=== PATIENT | female | born 2000 | race Caucasian/White ===

== ENCOUNTER 2021-06-22 14:45 | Emergency (ER) | payer OTHER, SELFPAY ==
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
[2021-06-22 15:48] VITALS: BP 127/86; PULSE 85; RESP 16; TEMP 36.7; O2SAT 98; BMI 31.7
[2021-06-22] MEDS: Ibuprofen 600 MG TABLET PO (15:55)
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
[2021-06-22 17:19] VITALS: BP 129/72; PULSE 83; RESP 18; TEMP 36.9; O2SAT 97
== END 2021-06-22 17:29 | disposition home or self-care (01) ==
PROVIDERS: Emergency Provider Emergency Medicine Emergency Medical Services; PCP Nurse Practitioner Pediatrics
DX: S06.0X0A Concussion without loss of consciousness, initial encounter (principal); S83.91XA Sprain of unspecified site of right knee, initial encounter; G44.309 Post-traumatic headache, unspecified, not intractable; V43.62XA Car passenger injured in collision with other type car in traffic accident, initial encounter; Y93.9 Activity, unspecified; Y92.410 Unspecified street and highway as the place of occurrence of the external cause; Y99.9 Unspecified external cause status
CPT/HCPCS: 73560; 99284

== ENCOUNTER 2021-07-06 11:50 | Emergency (ER) | payer OTHER, SELFPAY ==
--- NOTE | ~2021-07-06 | CT_ITS ---
EXAMINATION: CT ABDOMEN AND PELVIS WITH CONTRAST CLINICAL INFORMATION: Diffuse abdominal pain, dysuria, lower back pain COMPARISON: None TECHNIQUE: Multidetector volumetric images were obtained from the superior aspect of the liver through the pubic symphysis following administration 85 mL of Omnipaque 350 intravenous contrast. Sagittal and coronal reformatted images were obtained on the technologist's workstation. Oral contrast: No This CT examination was performed using dose optimization techniques as appropriate, variously including the following: *Automated exposure control *Adjustment of mA and/or kV according to patient size (this includes techniques or standardized protocols for targeted exams where dose is matched to indication/reason for exam; i.e. extremities or head) *Use of iterative reconstruction technique DLP: 674 mGy-cm FINDINGS: LUNG BASES: The visualized lung bases are unremarkable. LIVER, GALLBLADDER, AND BILIARY TREE: The liver is normal in size, shape, and attenuation. No focal hepatic lesion or biliary ductal dilatation is present. The gallbladder is unremarkable with no evidence of radiopaque gallstones, gallbladder wall thickening, or obvious pericholecystic inflammatory changes. PANCREAS: Unremarkable. SPLEEN: Unremarkable. ADRENAL GLANDS: Unremarkable. KIDNEYS AND URETERS: The kidneys are normal in size, shape, and attenuation. No hydronephrosis, hydroureter, or calculi seen. No perinephric stranding. BLADDER: Possible mild bladder wall thickening versus underdistention. GASTROINTESTINAL TRACT: The stomach and small bowel are not dilated. No evidence for bowel obstruction. Normal appendix. No pericolonic inflammatory change. ABDOMINAL WALL: No significant hernia is appreciated. LYMPH NODES: Normal. VASCULAR: Unremarkable. PELVIC VISCERA: There is a small fibroid along the fundus of the uterus that measures 1 cm. No adnexal mass. OSSEOUS STRUCTURES: No acute or suspicious osseous abnormality. CT/CT abdomen pelvis w con IMPRESSION: Possible mild bladder wall thickening versus underdistention. Consider correlation with urinalysis if there is concern for cystitis. Normal appendix. No evidence for bowel obstruction. No pericolonic inflammatory change.
[2021-07-06 11:52] VITALS: BP 135/90; PULSE 118; RESP 19; TEMP 37.1; O2SAT 98; BMI 32.8
--- NOTE | 2021-07-06 12:22 | ED_ITS ---
HPI - Female Genitourinary General Chief complaint: Urogenital-Female Stated complaint: uti Time Seen by Provider: 07/06/21 12:06 Source: patient and family (Significant other at bedside) Mode of arrival: ambulatory Limitations: no limitations History of Present Illness HPI Narrative: 20-year-old female with no significant past medical or surgical history presenting to the ED with her significant other at bedside with complaints of chills, sore throat, nasal congestion/rhinorrhea, suprapubic abdominal pain that is now radiating to her left upper quadrant/left flank and lower back bilaterally with associated dysuria/urinary urgency/frequency for the past 3-4 days. Reports that she has had UTIs in the past although usually does not need antibiotics usually takes cranberry juice and the UTI as go away on their own. Although she has been drink cranberry juice and no symptomatic relief. She reports that she is not vaccinated to the flu or to COVID. She denies any sick contacts or recent travel. She denies any measured fevers, dizziness, headaches, neck pain/stiffness, trouble swallowing or breathing, chest pain or shortness of breath, dyspnea on exertion, orthopnea, black or bloody emesis, rashes, recent falls or trauma, diarrhea constipation, hematuria, urinary or bowel incontinence or retention, IV drug use, paresthesias or any other symptoms complaints or concerns at this time. MD elicited complaint: dysuria and UTI Onset (ago): day(s) (3) Location of symptoms: suprapubic Severity: moderate Female Urogenital Radiation: Suprapubic, LLQ, LRQ, L Flank and R Flank Severity scale (1-10): 9 Quality of pain: sharp and aching Consistency: constant Vaginal discharge: none Vaginal bleeding: none Urinary symptoms: Dysuria, Urgency and Frequency Exacerbating factors: urination and palpation Relieving factors: none Associated symptoms: abdominal pain, chills, nausea, vomiting and back pain Treatment prior to arrival: other (Cranberry juice) Sexual activity: Yes Patient : No Date of Last Menstrual Period: 06/21/21 Related Data Previous Rx's Medication Instructions Recorded ibuprofen 600 mg tablet 600 mg PO Q6H PRN #20 tab 06/22/21 cephalexin 500 mg capsule 500 mg PO Q6H 7 Days #28 cap 07/06/21 ondansetron 4 mg disintegrating 4 mg PO Q6-8H PRN #14 tab 07/06/21 tablet Allergies Allergy/AdvReac Type Severity Reaction Status Date / Time No Known Allergies Allergy Verified 06/22/21 15:48 Review of Systems Review of Systems: Constitutional : No Weight loss, No Fever, + Chills, No Night Sweats, No Fatigue, No Malaise ENT/Mouth : No Hearing loss, No Ear Pain, + Nasal Congestion, No Sinus Pain, No Hoarseness, + sore throat, + Rhinorrhea, No Swallowing Difficulty Eyes: No Eye Pain, No Swelling, No Redness, No Foreign Body, No Discharge, No Vision Changes Cardiovascular : No Chest Pain, No SOB, No Dyspnea on Exertion, No Orthopnea, No Edema, No Palpitations Respiratory : No Cough, No Sputum, No Wheezing, No Smoke Exposure, No Dyspnea Gastrointestinal : + Nausea, + Vomiting, No Diarrhea, No Constipation, + abdominal Pain, No Hematochezia, No Melena Genitourinary : no irregular bleeding, + Dysuria, + Urinary Frequency, No Hematuria, No Urinary Incontinence, + Urgency, + Flank Pain, No Urinary Flow Changes, No Hesitancy Musculoskeletal : No joint pain, No Myalgias, No Joint Swelling Skin : No Skin Lesions, No rash Neuro : No Weakness, No Numbness, No Paresthesias, No Loss of Consciousness, No Dizziness, No Headache Psych : No Anxiety/Panic, No Depression, No SI/HI/AH/VH, No Social Issues, Heme/Lymph: No Bruising, No Bleeding,No Lymphadenopathy Endocrine : No Polyuria, No Polydipsia, No Temperature Intolerance Yes all othe r systems are reviewed and are negative PMFSH Past Medical History Attestation statement: The following information was validated with the patient. Medical History No known health problems Date of Last Menstrual Period: 06/21/21 Social History Social History Patient Tobacco Use Status: Never used Tobacco Use of substances other than those prescribed or required for medical reasons: Yes Substance Use Type: Marijuana Substance Use Frequency: Daily Advance Directives: No Advance Directives Information Provided: No Patient : No Physical Exam Vital Signs: Vital Signs: Last Vital Signs Temp 98.8 F 07/06/21 11:52 Pulse 94 07/06/21 12:44 Resp 18 07/06/21 12:44 BP 142/89 H 07/06/21 12:44 Pulse Ox 98 07/06/21 12:44 BMI result Body Mass Index 32.8 vital signs have been reviewed Blood pressure 135/90 Heart rate 118 Respiration normal. Oxygen saturation normal. Temperature 98.8 normal Appearance: Alert. Oriented X3. No acute distress. Head: Normal external exam. Normocephalic. Atraumatic. Eyes: PERRLA. EOMI. Conjunctiva and sclera normal. Eyelids normal. ENT: EAC normal. TM's Normal. Posterior pharynx mildly erythematous although no exudate is noted. Uvula midline. Moist mucous membranes. No trismus noted. No drooling noted. No muffled voice noted. No stridor noted. Patient tolerating secretions well. Neck: Normal inspection. Neck supple. FROM. No adenopathy. Thyroid Normal. No meningeal signs. No neck mass noted. CVS: Normal heart rate and rhythm. Heart sound normal. Pulses normal throughout. No murmurs/rales/gallops. Respiratory: No respiratory distress. Painless inspiration. Breath sounds normal. No wheezes/rales/rhonchi noted. Chest nontender. No accessory muscle usage noted or decreased air movement noted. Normal chest excursions noted. Abdomen: Soft and moderate tenderness diffusely with guarding. Bowel sounds normal in all 4 quadrants. No distention noted. No organomegaly noted. No visible injury noted. Negative Rovsing sign. Negative psoas sign. Negative obturator sign. Negative Gonzalez sign. Back: No CVA tenderness. Full range of motion noted. No rashes/lesion/induration/fluctuance or signs of infection noted. Skin: Skin warm and dry. Normal skin color. Normal skin turgor. No rashes/lesions/lacerations noted. Extremities: Extremities exhibit normal range of motion. Extremities nontender. Neuro: Oriented X 3. No motor deficit. No sensory deficit. Reflexes normal. Normal steady gait. No focal neuro deficits noted. Vascular: + radial pulses/+ 2 distal pedal pulses/+2 dorsalis pedis b/l. Normal cap refill. No cyanosis noted to upper extremity nails and lower extremity toes nails. Course Course Course Narrative: 12:10pm - 20-year-old female with no significant past medical or surgical history p resenting to the ED with her significant other at bedside with complaints of chills, sore throat, nasal congestion/rhinorrhea, suprapubic abdominal pain that is now radiating to her left upper quadrant/left flank and lower back bilaterally with associated dysuria/urinary urgency/frequency for the past 3-4 days. Reports that she has had UTIs in the past although usually does not need antibiotics usually takes cranberry juice and the UTI as go away on their own. Although she has been drink cranberry juice and no symptomatic relief. Plan: Labs, UA, gonorrhea chlamydia urine, rapid strep swab, COVID swab, influenza swab, CT scan abdomen pelvis with IV contrast, [facility] [place]. Provide a L of IV fluids and 4 mg of Zofran and 30 mg of IV Toradol then re-evaluate. Reevaluation(s) Reevaluation #1: - Labs reviewed in carbon dioxide 21. Otherwise all other labs are within normal limits. UA revealed +1 protein, +1 blood and 50-75 white blood cells although she did have +3 epithelial cells although due to patient reporting that she is having urinary symptoms will treat for UTI will give a dose of Levaquin while here in the ER. - patient negative for COVID and influenza. - patient is positive for strep. - awaiting CT scan abdomen pelvis with IV contrast. Time: 13:32 Reevaluation #2: - CT scan of abdomen and pelvis revealed mild bladder wall thickening versus under distension possibly cystitis otherwise no other acute processes. Therefore at this time patient is tolerating p.o. fluids/solid will discharge with antibiotics for bacterial pharyngitis any UTI along with Zofran and symptomatic treatment instructions return if any new or worsening symptoms to follow up with primary care provider. Patient understands agrees with this plan. Time: 15:08 MDM - Female Genitourinary Medical Records Attestation: I reviewed the patient's medical records. Lab Data Attestation: I reviewed the patient's lab results. Result diagrams: 07/06/21 12:29 07/06/21 12:29 Labs: Lab Results 07/06/21 07/06/21 07/06/21 Range/Units 12:29 12:29 12:29 WBC 10.2 (4.8-10.8) X10*3/uL RBC 4.60 (4.20-5.50) X10*6/uL Hgb 14.2 (12.0-16.0) g/dl Hct 42.1 (37.0-47.0) % MCV 91.5 (80.0-98.0) fL MCH 30.9 (27.0-33.0) pg MCHC 33.7 (31.0-35.0) g/dl RDW 13.4 (11.0-16.0) % Plt Count 255 (160-400) X10*3/uL MPV 9.9 (9.4-12.3) fL Immature Gran % (Auto) 0.5 H (0.0-0.4) % Neut % (Auto) 88.2 H (45-73) % Lymph % (Auto) 5.9 L (20-40) % [place] % (Auto) 4.8 (2-11) % Eos % (Auto) 0.4 (0-4) % Baso % (Auto) 0.2 (0-2) % Lymph # (Auto) 0.6 L (1.2-4.9) X10*3/uL [place] # (Auto) 0.5 (0.1-1.2) X10*3/uL Eos # (Auto) 0.0 (0.0-0.4) X10*3/uL Baso # (Auto) 0.0 (0.0-0.2) X10*3/uL Abs Immat Gran (auto) 0.05 H (0.00-0.03) X10*3/uL Absolute Neuts (auto) 9.0 H (2.0-8.3) x10*3/uL Absolute Nucleated RBC 0.000 (0.0-0.012) X10*3/uL Nucleated RBC % (auto) 0.0 (0.0-0.2) /100WBC Sodium 137 (135-145) mmol/L Potassium 3.6 (3.3-5.1) mmol/L Chloride 104 (96-108) mmol/L Carbon Dioxide 21 L (22-29) mmol/L Anion Gap 16 (12-20) BUN 12 (9-16) mg/dL Creatinine 0.70 (0.5-1.4) mg/dL Estim Creat Clear Calc 116.9 Estimated GFR > 60 Random Glucose 115 (60-115) mg/dL Lactic Acid (0.5-2.0) mmol/L Calcium 9.4 (8.4-10.2) mg/dL Magnesium 1.9 (1.6-2.6) mg/dL Total Bilirubin 0.8 (0.0-1.0) mg/dL AST 19 (5-31) U/L ALT 21 (0-31) U/L Alkaline Phosphatase 70 (39-117) U/L Total Protein 7.6 (6.5-8.0) g/dL Albumin 4.3 (3.5-5.0) g/dL Urine Color Urine Appearance Urine pH (5.0-8.0) Ur Specific [place] (1.005-1.025) Urine Protein (NEG-TRACE) MG/DL Urine Glucose (UA) (NEG) MG/DL Urine Ketones (NEG) MG/DL Urine Blood (NEG) Urine Nitrite (NEG) Ur Leukocyte Esterase (NEG) Urine RBC (0) /HPF Urine WBC (0-4) /HPF Ur Squamous Epith Cells /LPF Urine Bacteria /LPF Urine Mucus /LPF Urine Test (NEGATIVE) COVID-19 (MIL) (Negative) COVID-19 Clin Com Influenza Type A (HIRO) Negative (Negative) Influenza Type B (HIRO) Negative (Negative) Influenza A & B Note See Note S. pyogenes GrpA HIRO (Negative) 07/06/21 07/06/21 07/06/21 Range/Units 12:29 12:29 12:29 WBC (4.8-10.8) X10*3/uL RBC (4.20-5.50) X10*6/uL Hgb (12.0-16.0) g/dl Hct (37.0-47.0) % MCV (80.0-98.0) fL MCH (27.0-33.0) pg MCHC (31.0-35.0) g/dl RDW (11.0-16.0) % Plt Count (160-400) X10*3/uL MPV (9.4-12.3) fL Immature Gran % (Auto) (0.0-0.4) % Neut % (Auto) (45-73) % Lymph % (Auto) (20-40) % [place] % (Auto) (2-11) % Eos % (Auto) (0-4) % Baso % (Auto) (0-2) % Lymph # (Auto) (1.2-4.9) X10*3/uL [place] # (Auto) (0.1-1.2) X10*3/uL Eos # (Auto) (0.0-0.4) X10*3/uL Baso # (Auto) (0.0-0.2) X10*3/uL Abs Immat Gran (auto) (0.00-0.03) X10*3/uL Absolute Neuts (auto) (2.0-8.3) x10*3/uL Absolute Nucleated RBC (0.0-0.012) X10*3/uL Nucleated RBC % (auto) (0.0-0.2) /100WBC Sodium (135-145) mmol/L Potassium (3.3-5.1) mmol/L Chloride (96-108) mmol/L Carbon Dioxide (22-29) mmol/L Anion Gap (12-20) BUN (9-16) mg/dL Creatinine (0.5-1.4) mg/dL Estim Creat Clear Calc Estimated GFR Random Glucose (60-115) mg/dL Lactic Acid 1.2 (0.5-2.0) mmol/L Calcium (8.4-10.2) mg/dL Magnesium (1.6-2.6) mg/dL Total Bilirubin (0.0-1.0) mg/dL AST (5-31) U/L ALT (0-31) U/L Alkaline Phosphatase (39-117) U/L Total Protein (6.5-8.0) g/dL Albumin (3.5-5.0) g/dL Urine Color Urine Appearance Urine pH (5.0-8.0) Ur Specific [place] (1.005-1.025) Urine Protein (NEG-TRACE) MG/DL Urine Glucose (UA) (NEG) MG/DL Urine Ketones (NEG) MG/DL Urine Blood (NEG) Urine Nitrite (NEG) Ur Leukocyte Esterase (NEG) Urine RBC (0) /HPF Urine WBC (0-4) /HPF Ur Squamous Epith Cells /LPF Urine Bacteria /LPF Urine Mucus /LPF Urine Test (NEGATIVE) COVID-19 (MIL) Negative (Negative) COVID-19 Clin Com See Note Influenza Type A (HIRO) (Negative) Influenza Type B (HIRO) (Negative) Influenza A & B Note S. pyogenes GrpA HIRO Positive A (Negative) 07/06/21 07/06/21 Range/Units 12:29 12:29 WBC (4.8-10.8) X10*3/uL RBC (4.20-5.50) X10*6/uL Hgb (12.0-16.0) g/dl Hct (37.0-47.0) % MCV (80.0-98.0) fL MCH (27.0-33.0) pg MCHC (31.0-35.0) g/dl RDW (11.0-16.0) % Plt Count (160-400) X10*3/uL MPV (9.4-12.3) fL Immature Gran % (Auto) (0.0-0.4) % Neut % (Auto) (45-73) % Lymph % (Auto) (20-40) % [place] % (Auto) (2-11) % Eos % (Auto) (0-4) % Baso % (Auto) (0-2) % Lymph # (Auto) (1.2-4.9) X10*3/uL [place] # (Auto) (0.1-1.2) X10*3/uL Eos # (Auto) (0.0-0.4) X10*3/uL Baso # (Auto) (0.0-0.2) X10*3/uL Abs Immat Gran (auto) (0.00-0.03) X10*3/uL Absolute Neuts (auto) (2.0-8.3) x10*3/uL Absolute Nucleated RBC (0.0-0.012) X10*3/uL Nucleated RBC % (auto) (0.0-0.2) /100WBC Sodium (135-145) mmol/L Potassium (3.3-5.1) mmol/L Chloride (96-108) mmol/L Carbon Dioxide (22-29) mmol/L Anion Gap (12-20) BUN (9-16) mg/dL Creatinine (0.5-1.4) mg/dL Estim Creat Clear Calc Estimated GFR Random Glucose (60-115) mg/dL Lactic Acid (0.5-2.0) mmol/L Calcium (8.4-10.2) mg/dL Magnesium (1.6-2.6) mg/dL Total Bilirubin (0.0-1.0) mg/dL AST (5-31) U/L ALT (0-31) U/L Alkaline Phosphatase (39-117) U/L Total Protein (6.5-8.0) g/dL Albumin (3.5-5.0) g/dL Urine Color DK YELLOW Urine Appearance HAZY Urine pH 6.0 (5.0-8.0) Ur Specific [place] 1.020 (1.005-1.025) Urine Protein 1+ H (NEG-TRACE) MG/DL Urine Glucose (UA) NEG (NEG) MG/DL Urine Ketones NEG (NEG) MG/DL Urine Blood 1+ H (NEG) Urine Nitrite SEE NOTE (NEG) Ur Leukocyte Esterase 1+ H (NEG) Urine RBC 1-4 (0) /HPF Urine WBC 50-75 H (0-4) /HPF Ur Squamous Epith Cells 3+ /LPF Urine Bacteria TRACE /LPF Urine Mucus TRACE /LPF Urine Test NEGATIVE (NEGATIVE) COVID-19 (MIL) (Negative) COVID-19 Clin Com Influenza Type A (HIRO) (Negative) Influenza Type B (HIRO) (Negative) Influenza A & B Note S. pyogenes GrpA HIRO (Negative) Imaging Data CT scan of abdomen and pelvis with IV contrast: Attestation: I personally reviewed and interpreted this imaging study as follows: Radiologist's impression: FINDINGS: LUNG BASES: The visualized lung bases are unremarkable.? LIVER, GALLBLADDER, AND BILIARY TREE: The liver is normal in size, shape, and attenuation. No focal hepatic lesion or biliary ductal dilatation is present. The gallbladder is unremarkable with no evidence of radiopaque gallstones, gallbladder wall thickening, or obvious pericholecystic inflammatory changes.? PANCREAS: Unremarkable.? SPLEEN: Unremarkable.? ADRENAL GLANDS: Unremarkable.? KIDNEYS AND URETERS: The kidneys are normal in size, shape, and attenuation. No hydronephrosis, hydroureter, or calculi seen. No perinephric stranding. ? BLADDER: Possible mild bladder wall thickening versus underdistention. GASTROINTESTINAL TRACT: The stomach and small bowel are not dilated. No evidence for bowel obstruction. Normal appendix. No pericolonic inflammatory change. ABDOMINAL WALL: No significant hernia is appreciated.? LYMPH NODES: Normal. VASCULAR: Unremarkable. PELVIC VISCERA: There is a small fibroid along the fundus of the uterus that measures 1 cm. No adnexal mass.? OSSEOUS STRUCTURES: No acute or suspicious osseous abnormality.? CT/CT abdomen pelvis w con IMPRESSION: Possible mild bladder wall thickening versus underdistention. Consider correlation with urinalysis if there is concern for cystitis. ? Normal appendix. No evidence for bowel obstruction. No pericolonic inflammatory change. Critical Care Time Critical Care Time Critical Care Time: Yes Total Critical Care Time: 60 Attestation: I personally attest to this time spent taking care of the patient Discharge Plan Discharge Clinical Impression: UTI (urinary tract infection), Strep pharyngitis, Nausea & vomiting, Abdominal pain Patient Disposition: Home, Self-Care Instructions: Urinary Tract Infection in Women (DC), Strep Throat (DC) Additional Instructions: You have pending lab results if any are positive you will be contacted. Return if any new or worsening symptoms. Follow up with your primary care provider. Prescriptions: New ondansetron 4 mg tablet,disintegrating 4 mg PO Q6-8H PRN (Reason: nausea and vomiting) Qty: 14 0RF cephalexin 500 mg capsule 500 mg PO Q6H 7 Days Qty: 28 0RF No Action ibuprofen 600 mg tablet 600 mg PO Q6H PRN (Reason: pain) Qty: 20 0RF Referrals: Shiloh Junior NP [Primary Care Provider] - 2 days Stand Alone Forms: Work/School Release Print Language: Citizen Of [place]
[2021-07-06 12:33] LABS: MANUAL DIFF FLAG NO
[2021-07-06 12:35] LABS: Basophils Percent Auto 0.2 % (0-2); Eosinophils Percent Auto 0.4 % (0-4); Hematocrit 42.1 % (37.0-47.0); Hemoglobin 14.2 g/dl (12.0-16.0); Imm Gran Abs Auto 0.05 X10*3/uL (0.00-0.03); Imm Gran Pct Auto 0.5 % (0.0-0.4); Lymphocytes Absolute Auto 0.6 X10*3/uL (1.2-4.9); Lymphocytes Percent Auto 5.9 % (20-40); Mean Corpuscular HGB Conc 33.7 g/dl (31.0-35.0); Mean Corpuscular Hemoglobin 30.9 pg (27.0-33.0); Mean Corpuscular Volume 91.5 fL (80.0-98.0); Mean Platelet Volume 9.9 fL (9.4-12.3); Monocytes Absolute Auto 0.5 X10*3/uL (0.1-1.2); Monocytes Percent Auto 4.8 % (2-11); Neutrophils Percent Auto 88.2 % (45-73); Platelet Count 255 X10*3/uL (160-400); Red Cell Distribution Width 13.4 % (11.0-16.0); White Blood Count 10.2 X10*3/uL (4.8-10.8)
[2021-07-06 12:36] LABS: Appearance Urine HAZY; Color Urine DK YELLOW; Glucose Urine UA NEG (NEG); Leukocyte Esterase Urine 1+ (NEG); UACC Culture Trigger YES; UPreg QC Valid YES; Urine Blood 1+ (NEG); Urine Ketones NEG (NEG); Urine Protein 1+ MG/DL (NEG-TRACE)
[2021-07-06] MEDS: 0.9 % Sodium Chloride 1,000 ML 999 ML IVCONT (12:36)
[2021-07-06 12:37] LABS: Urine Pregnancy NEGATIVE (NEGATIVE)
[2021-07-06] MEDS: ondansetron HCL 4 MG/2 ML VIAL IVPUSH (12:40)
[2021-07-06] MEDS: Ketorolac Tromethamine 30 MG/ML VIAL IVPUSH (12:40)
[2021-07-06 12:44] VITALS: BP 142/89; PULSE 94; RESP 18; O2SAT 98
[2021-07-06 12:46] LABS: Bacteria Urine TRACE /LPF; Mucus Urine TRACE /LPF; Squamous Epithelial Cell Urine 3+ /LPF; WBC Urine 50-75 /HPF (0-4)
[2021-07-06 12:53] LABS: Lactic Acid 1.2 mmol/L (0.5-2.0)
[2021-07-06 12:54] LABS: IDNOW Serial# 08D9AD1C; Strep A Nucleic Acid Positive (Negative)
[2021-07-06 12:56] LABS: COVID-19 Test Negative (Negative)
[2021-07-06 12:58] LABS: Alanine Aminotransferase 21 U/L (0-31); Albumin Level 4.3 g/dL (3.5-5.0); Alkaline Phosphatase 70 U/L (39-117); Anion Gap 16 (12-20); Aspartate Amino Transferase 19 U/L (5-31); Bilirubin Total 0.8 mg/dL (0.0-1.0); Blood Urea Nitrogen 12 mg/dL (9-16); Calcium 9.4 mg/dL (8.4-10.2); Carbon Dioxide 21 mmol/L (22-29); Chloride 104 mmol/L (96-108); Creatinine Clr Calc Pharmacy 116.9; Estimated Glomerular Filt Rate > 60; Glucose Random 115 mg/dL (60-115); Magnesium 1.9 mg/dL (1.6-2.6); Potassium 3.6 mmol/L (3.3-5.1); Sodium 137 mmol/L (135-145); Total Protein 7.6 g/dL (6.5-8.0)
[2021-07-06 13:01] LABS: Influenza A Negative (Negative); Influenza B2 Negative (Negative)
[2021-07-06] MEDS: levoFLOXacin/D5W 750 MG/150 ML PIGGYBACK 100 MG IV (13:44)
[2021-07-06] MEDS: iohexoL 350 MG/ML 100 ML INFUS..BTL 85 ML IV (13:57)
--- NOTE | 2021-07-06 15:09 | PC.NURSE ---
/pt reports feeling better, pain at nausea improved and vomiting since in the ed
[2021-07-07 05:00] LABS: CT PCR NOT DETECTED (Not Detect.); NG PCR NOT DETECTED (Not Detect.)
== END 2021-07-06 16:15 | disposition home or self-care (01) ==
PROVIDERS: Physician Assistant Medical; Emergency Provider Emergency Medicine; PCP Nurse Practitioner Pediatrics
DX: N39.0 Urinary tract infection, site not specified (principal); J02.0 Streptococcal pharyngitis; R30.0 Dysuria; R10.32 Left lower quadrant pain; R10.31 Right lower quadrant pain; Z20.822 Contact with and (suspected) exposure to COVID-19; Z79.899 Other long term (current) drug therapy
CPT/HCPCS: 36415; 74177; 80053; 81001; 81025; 83605; 83735; 85025; 87040; 87086; 87088; 87186; 87491; 87502; 87591; 87635; 87651; 99285; J1885; J1956; J2405; Q9967

== ENCOUNTER 2022-04-07 19:52 | Emergency (ER) | payer OTHER, SELFPAY ==
[2022-04-07 20:55] VITALS: BP 134/80; PULSE 82; RESP 18; TEMP 37.1; O2SAT 96; BMI 34.0
--- NOTE | 2022-04-07 20:57 | ED_ITS ---
HPI - Abdominal Pain General Chief Complaint: Nausea/Vomiting/Diarrhea <ANABELA Hannah - Last Filed: 04/07/22 20:58> Stated Complaint: abd pain, coughing up blood <ANABELA Hannah - Last Filed: 04/07/22 20:58> Time Seen by Provider: 04/08/22 02:18 <ANABELA Hannah - Last Filed: 04/07/22 20:58> Source: patient <Bayron Ac MD - Last Filed: 04/08/22 04:34> Mode of arrival: ambulatory <Bayron Ac MD - Last Filed: 04/08/22 04:34> Limitations: no limitations <Bayron Ac MD - Last Filed: 04/08/22 04:34> History of Present Illness HPI narrative: 21-year-old female who presents emergency department for evaluation of nausea, vomiting and abdominal pain x3 days. Patient is complaining of lower abdominal pain. She states the pain came on gradually. She states the pain is a sharp, constant pain which is 10/10. Patient states she has had associated nausea and vomiting. She states she has been vomiting multiple times a day. She states she has noted some blood streaks in her emesis. The patient denied fever. She states she had occasional chills. She denied rhinorrhea, sore throat, cough, chest pain. She does have mild shortness of breath but no dyspnea on exertion. She denied diarrhea. She had urinary frequency but no dys uria. She denied lightheadedness or dizziness. The patient states that her menstrual periods are irregular and she does not know when she had her last menstrual period. The patient is a , she states she had a therapeutic approximately 2 or 3 years prior. The patient is sexually active and last had intercourse 2 weeks prior to evaluation. <Bayron Ac MD - Last Filed: 04/08/22 04:34> MD elicited complaint: abdominal pain <Bayron Ac MD - Last Filed: 04/08/22 04:34> Pertinent past history: none <Bayron Ac MD - Last Filed: 04/08/22 04:34> Onset (ago): day(s) (3) <Bayron Ac MD - Last Filed: 04/08/22 04:34> Pain Consistency: constant <Bayron Ac MD - Last Filed: 04/08/22 04:34> Location: RLQ, LLQ and pelvis <Bayron Ac MD - Last Filed: 04/08/22 04:34> Related Data Home Medications: Previous Rx's Medication Instructions Recorded ibuprofen 600 mg tablet 600 mg PO Q6H PRN pain #20 tabs 06/22/21 cephalexin 500 mg capsule 500 mg PO Q6H Bacterial 07/06/21 pharyngitis/UTI 7 days #28 caps ondansetron 4 mg disintegrating 4 mg PO Q6-8H PRN nausea and 07/06/21 tablet vomiting #14 tabs ondansetron 4 mg disintegrating 4 mg PO Q6-8H PRN nausea and 04/08/22 tablet vomiting #14 tabs <ANABELA Hannah - Last Filed: 04/07/22 20:58> Allergies/Adverse Reactions: Allergies Allergy/AdvReac Type Severity Reaction Status Date / Time No Known Allergies Allergy Verified 06/22/21 15:48 <ANABELA Hannah - Last Filed: 04/07/22 20:58> Review of Systems Review of Systems Yes all other systems are reviewed and are negative <Bayron Ac MD - Last Filed: 04/08/22 04:34> [facility] Past Medical History [facility] Narrative: Past medical history: , 1 therapeutic . Past surgical history: None. Social history: Patient denies tobacco use. She rarely drinks alcohol. She smokes marijuana 3 to 4 times a week. <Bayron Ac MD - Last Filed: 04/08/22 04:34> Medical History: Medical History No known health problems <ANABELA Hannah - Last Filed: 04/07/22 20:58> Social History Social History: Social History Patient Tobacco Use Status: Never used Tobacco Substance Use Type: Marijuana Advance Directives: No Advance Directives Information Provided: No <ANABELA Hannah - Last Filed: 04/07/22 20:58> Physical Exam ED Vital Signs: Vital Signs - 24 hr 04/07/22 20:55 04/07/22 23:49 Temperature 98.8 F 98.0 F Pulse Rate 82 78 Respiratory Rate 18 16 Blood Pressure 134/80 145/81 H Pulse Oximetry 96 99 Oxygen Delivery Method Room Air Room Air BMI result Body Mass Index 34.0 <ANABELA Hannah - Last Filed: 04/07/22 20:58> Vital Signs - 24 hr 04/07/22 20:55 04/07/22 23:49 Temperature 98.8 F 98.0 F Pulse Rate 82 78 Respiratory Rate 18 16 Blood Pressure 134/80 145/81 H Pulse Oximetry 96 99 Oxygen Delivery Method Room Air Room Air BMI result Body Mass Index 34.0 <Bayron Ac MD - Last Filed: 04/08/22 04:34> Const General: cooperative and no acute distress <Bayron Ac MD - Last Filed: 04/08/22 04:34> Orientation/consciousness: oriented to person and oriented to place <Bayron Ac MD - Last Filed: 04/08/22 04:34> Limitations: no limitations <Bayron Ac MD - Last Filed: 04/08/22 04:34> HENMT Head: Yes normal to inspection, Yes normocephalic and Yes atraumatic <Bayron Ac MD - Last Filed: 04/08/22 04:34> Ears: external ears normal <Bayron Ac MD - Last Filed: 04/08/22 04:34> General nose exam: Normal external nose present <Bayron Ac MD - Last Filed: 04/08/22 04:34> Face and sinus: Yes normal facial exam <Bayron Ac MD - Last Filed: 04/08/22 04:34> Mouth: Normal oral and palatal mucosa present <Bayron Ac MD - Last Filed: 04/08/22 04:34> Throat: Yes posterior oropharynx normal <Bayron Ac MD - Last Filed: 04/08/22 04:34> Eyes General: appearance normal, both eyes and all related structures <MD Peter Godinez Last Filed: 04/08/22 04:34> Pupils: Equal, round and reactive pupils present <MD Peter Godinez Last Filed: 04/08/22 04:34> Neck Neck: Yes normal visual inspection, Yes no lymphadenopathy, Yes trachea midline and Yes supple <MD Peter Godinez Last Filed: 04/08/22 04:34> Chest Chest palpation & inspection: normal inspection of the chest and normal palpation of entire chest wall <MD Peter Godinez Last Filed: 04/08/22 04:34> Resp Effort & Inspection: normal respiratory effort and able to speak in complete sentences <MD Peter Godinez Last Filed: 04/08/22 04:34> Auscultation: clear to auscultation bilaterally <MD Peter Godinez Last Filed: 04/08/22 04:34> Cardio Rate: regular rate <MD Peter Godinez Last Filed: 04/08/22 04:34> Rhythm: regular rhythm <MD Peter Godinez Last Filed: 04/08/22 04:34> Heart sounds: S1 normal heart sound present, S2 normal heart sound present and no murmurs <MD Peter Godinez Last Filed: 04/08/22 04:34> GI Inspection: Yes normal to inspection <MD Peter Godinez Last Filed: 04/08/22 04:34> Palpation (GI): Soft to palpation, Tenderness to palpation present (GI) ([id number] diffuse abdominal tenderness) and no guarding <MD Peter Godinez Last Filed: 04/08/22 04:34> Auscultation: normal bowel sounds <MD Peter Godinez Last Filed: 04/08/22 04:34> General: Yes no CVA tenderness <MD Peter Godinez Last Filed: 04/08/22 04:34> Back/Spine/Pelvis Back: no CVA tenderness <MD Peter Godinez Last Filed: 04/08/22 04:34> Skin General skin exam: no rashes or lesions noted <Bayron Ac MD - Last Filed: 04/08/22 04:34> Neuro General: oriented to person and oriented to place <Bayron Ac MD - Last Filed: 04/08/22 04:34> Cranial nerves: Yes CN's II-XII intact bilaterally and Yes Equal, round and reactive pupils present <Bayron Ac MD - Last Filed: 04/08/22 04:34> Cognition (Neuro): normal cognition <Bayron Ac MD - Last Filed: 04/08/22 04:34> Motor exam (neuro): 5/5 motor strength present throughout <Bayron Ac MD - Last Filed: 04/08/22 04:34> Extrem General: Yes normal to inspection <Bayron Ac MD - Last Filed: 04/08/22 04:34> Psych Appearance: grossly normal <Bayron Ac MD - Last Filed: 04/08/22 04:34> Speech and movement: Normal speech and movement present <Bayron Ac MD - Last Filed: 04/08/22 04:34> Affect: normal affect <Bayron Ac MD - Last Filed: 04/08/22 04:34> Attitude: cooperative <Bayron Ac MD - Last Filed: 04/08/22 04:34> Thought process: Normal thought process present <Bayron Ac MD - Last Filed: 04/08/22 04:34> Thought content: Normal thought content present <Bayron Ac MD - Last Filed: 04/08/22 04:34> Course Course Course Narrative: 21pm - 21yoF presenting to the ER with complaints of nausea/vomiting and suprapubic abdominal cramping for the past 3-4 days worse today. Reports when she does vomit she has blood streaked emesis/sputum. Denies any thoughts of . Denies any other symptoms related to this. Plan: Labs, UA, serum quant, COVID/RSV/flu swab. Patient will be sent back to the waiting room for further evaluation treatment Emergency minor care. <ANABELA Hannah - Last Filed: 04/07/22 20:58> 21pm - 21yoF presenting to the ER with complaints of nausea/vomiting and suprapubic abdominal cramping for the past 3-4 days worse today. Reports when she does vomit she has blood streaked emesis/sputum. Denies any thoughts of . Denies any other symptoms related to this. Plan: Labs, UA, serum quant, COVID/RSV/flu swab. Patient will be sent back to the waiting room for further evaluation treatment Emergency minor care. 0422: 21-year-old female who presents emergency department for evaluation of lower abdominal pain x3 days, patient has had associated nausea and vomiting with trace blood in the emesis. Patient does not know when her last menstrual period was since her menstrual periods are irregular. She is not on control pills. Patient is sexually active. Patient's vital signs were unremarkable. Abdominal exam revealed diffuse abdominal tenderness. Laboratory evaluation WBC elevated 13,600. CO2 low 19. COVID-19, influenza and RSV were negative. Urinalysis was negative. Quantitative beta-hCG was 78. At this time I suspect the patient has a viral illness as the cause her symptoms however she does have a positive quantitative beta-hCG a 78. This could even me that the patient has an early or she may have detectable beta-hCG as a baseline. I did discuss this with the patient. Given this low level beta-hCG a do not think that an ultrasound is warranted at this time. The patient will need to follow-up with our OBGYN providers for repeat quantitative beta-hCG in 1 week and further evaluation determine if she is . Patient was treated with normal saline IV x1 L, Zofran 4 mg IV and Tylenol orally. She was given a prescription for Zofran advised to continue taking Tylenol. <Bayron Ac MD - Last Filed: 04/08/22 04:34> Medical Decision Making Lab Data Result Diagrams: : 04/07/22 21:16 04/07/22 21:16 <ANABELA Hannah - Last Filed: 04/07/22 20:58> Labs: Lab Results 04/07/22 04/07/22 04/07/22 Range/Units 21:16 21:16 21:16 WBC 13.6 H (4.8-10.8) X10*3/uL RBC 4.25 (4.20-5.50) X10*6/uL Hgb 13.3 (12.0-16.0) g/dl Hct 38.3 (37.0-47.0) % MCV 90.1 (80.0-98.0) fL MCH 31.3 (27.0-33.0) pg MCHC 34.7 (31.0-35.0) g/dl RDW 13.0 (11.0-16.0) % Plt Count 283 (160-400) X10*3/uL MPV 9.6 (9.4-12.3) fL Immature Gran % (Auto) 0.8 H (0.0-0.4) % Neut % (Auto) 70.8 (45-73) % Lymph % (Auto) 18.9 L (20-40) % Garrard % (Auto) 6.3 (2-11) % Eos % (Auto) 2.8 (0-4) % Baso % (Auto) 0.4 (0-2) % Lymph # (Auto) 2.6 (1.2-4.9) X10*3/uL Garrard # (Auto) 0.9 (0.1-1.2) X10*3/uL Eos # (Auto) 0.4 (0.0-0.4) X10*3/uL Baso # (Auto) 0.1 (0.0-0.2) X10*3/uL Abs Immat Gran (auto) 0.11 H (0.00-0.03) X10*3/uL Absolute Neuts (auto) 9.6 H (2.0-8.3) x10*3/uL Absolute Nucleated RBC 0.000 (0.0-0.012) X10*3/uL Nucleated RBC % (auto) 0.0 (0.0-0.2) /100WBC PT 12.4 (10.0-13.1) SEC INR 1.1 (0.9-1.1) Sodium 136 (135-145) mmol/L Potassium 3.8 (3.3-5.1) mmol/L Chloride 105 (96-108) mmol/L Carbon Dioxide 19 L (22-29) mmol/L Anion Gap 16 (12-20) BUN 13 (9-16) mg/dL Creatinine 0.68 (0.5-1.4) mg/dL Estim Creat Clear Calc 126.7 Estimated GFR > 60 Random Glucose 79 (60-115) mg/dL Calcium 9.4 (8.4-10.2) mg/dL Magnesium 1.8 (1.6-2.6) mg/dL Total Bilirubin 0.4 (0.0-1.0) mg/dL AST 20 (5-31) U/L ALT 26 (0-31) U/L Alkaline Phosphatase 88 D (39-117) U/L Total Protein 7.7 (6.5-8.0) g/dL Albumin 4.5 (3.5-5.0) g/dL Lipase 23 (8-78) U/L Beta HCG, Quant 78 mIU/mL Urine Color Urine Appearance Urine pH (5.0-9.0) Ur Specific Wright (1.005-1.025) Urine Protein (Neg-Trace) mg/dL Urine Glucose (UA) (Negative) mg/dL Urine Ketones (Negative) mg/dL Urine Blood (Negative) Urine Nitrite (Negative) Ur Leukocyte Esterase (Negative) Influenza Type A (PCR) (Negative) Influenza Type B (PCR) (Negative) RSV RNA Qual (PCR) (Negative) SARS-CoV-2 RNA (RT-PCR) (Negative) 04/07/22 04/07/22 Range/Units 21:17 21:17 WBC (4.8-10.8) X10*3/uL RBC (4.20-5.50) X10*6/uL Hgb (12.0-16.0) g/dl Hct (37.0-47.0) % MCV (80.0-98.0) fL MCH (27.0-33.0) pg MCHC (31.0-35.0) g/dl RDW (11.0-16.0) % Plt Count (160-400) X10*3/uL MPV (9.4-12.3) fL Immature Gran % (Auto) (0.0-0.4) % Neut % (Auto) (45-73) % Lymph % (Auto) (20-40) % Garrard % (Auto) (2-11) % Eos % (Auto) (0-4) % Baso % (Auto) (0-2) % Lymph # (Auto) (1.2-4.9) X10*3/uL Garrard # (Auto) (0.1-1.2) X10*3/uL Eos # (Auto) (0.0-0.4) X10*3/uL Baso # (Auto) (0.0-0.2) X10*3/uL Abs Immat Gran (auto) (0.00-0.03) X10*3/uL Absolute Neuts (auto) (2.0-8.3) x10*3/uL Absolute Nucleated RBC (0.0-0.012) X10*3/uL Nucleated RBC % (auto) (0.0-0.2) /100WBC PT (10.0-13.1) SEC INR (0.9-1.1) Sodium (135-145) mmol/L Potassium (3.3-5.1) mmol/L Chloride (96-108) mmol/L Carbon Dioxide (22-29) mmol/L Anion Gap (12-20) BUN (9-16) mg/dL Creatinine (0.5-1.4) mg/dL Estim Creat Clear Calc Estimated GFR Random Glucose (60-115) mg/dL Calcium (8.4-10.2) mg/dL Magnesium (1.6-2.6) mg/dL Total Bilirubin (0.0-1.0) mg/dL AST (5-31) U/L ALT (0-31) U/L Alkaline Phosphatase (39-117) U/L Total Protein (6.5-8.0) g/dL Albumin (3.5-5.0) g/dL Lipase (8-78) U/L Beta HCG, Quant mIU/mL Urine Color Yellow Urine Appearance Clear Urine pH 7.0 (5.0-9.0) Ur Specific Wright 1.025 (1.005-1.025) Urine Protein Negative (Neg-Trace) mg/dL Urine Glucose (UA) Negative (Negative) mg/dL Urine Ketones Trace (Negative) mg/dL Urine Blood Negative (Negative) Urine Nitrite Negative (Negative) Ur Leukocyte Esterase Negative (Negative) Influenza Type A (PCR) NEGATIVE (Negative) Influenza Type B (PCR) NEGATIVE (Negative) RSV RNA Qual (PCR) NEGATIVE (Negative) SARS-CoV-2 RNA (RT-PCR) NEGATIVE (Negative) <ANABELA Hannah - Last Filed: 04/07/22 20:58> Lab Results 04/07/22 04/07/22 04/07/22 Range/Units 21:16 21:16 21:16 WBC 13.6 H (4.8-10.8) X10*3/uL RBC 4.25 (4.20-5.50) X10*6/uL Hgb 13.3 (12.0-16.0) g/dl Hct 38.3 (37.0-47.0) % MCV 90.1 (80.0-98.0) fL MCH 31.3 (27.0-33.0) pg MCHC 34.7 (31.0-35.0) g/dl RDW 13.0 (11.0-16.0) % Plt Count 283 (160-400) X10*3/uL MPV 9.6 (9.4-12.3) fL Immature Gran % (Auto) 0.8 H (0.0-0.4) % Neut % (Auto) 70.8 (45-73) % Lymph % (Auto) 18.9 L (20-40) % Garrard % (Auto) 6.3 (2-11) % Eos % (Auto) 2.8 (0-4) % Baso % (Auto) 0.4 (0-2) % Lymph # (Auto) 2.6 (1.2-4.9) X10*3/uL Garrard # (Auto) 0.9 (0.1-1.2) X10*3/uL Eos # (Auto) 0.4 (0.0-0.4) X10*3/uL Baso # (Auto) 0.1 (0.0-0.2) X10*3/uL Abs Immat Gran (auto) 0.11 H (0.00-0.03) X10*3/uL Absolute Neuts (auto) 9.6 H (2.0-8.3) x10*3/uL Absolute Nucleated RBC 0.000 (0.0-0.012) X10*3/uL Nucleated RBC % (auto) 0.0 (0.0-0.2) /100WBC PT 12.4 (10.0-13.1) SEC INR 1.1 (0.9-1.1) Sodium 136 (135-145) mmol/L Potassium 3.8 (3.3-5.1) mmol/L Chloride 105 (96-108) mmol/L Carbon Dioxide 19 L (22-29) mmol/L Anion Gap 16 (12-20) BUN 13 (9-16) mg/dL Creatinine 0.68 (0.5-1.4) mg/dL Estim Creat Clear Calc 126.7 Estimated GFR > 60 Random Glucose 79 (60-115) mg/dL Calcium 9.4 (8.4-10.2) mg/dL Magnesium 1.8 (1.6-2.6) mg/dL Total Bilirubin 0.4 (0.0-1.0) mg/dL AST 20 (5-31) U/L ALT 26 (0-31) U/L Alkaline Phosphatase 88 D (39-117) U/L Total Protein 7.7 (6.5-8.0) g/dL Albumin 4.5 (3.5-5.0) g/dL Lipase 23 (8-78) U/L Beta HCG, Quant 78 mIU/mL Urine Color Urine Appearance Urine pH (5.0-9.0) Ur Specific Wright (1.005-1.025) Urine Protein (Neg-Trace) mg/dL Urine Glucose (UA) (Negative) mg/dL Urine Ketones (Negative) mg/dL Urine Blood (Negative) Urine Nitrite (Negative) Ur Leukocyte Esterase (Negative) Influenza Type A (PCR) (Negative) Influenza Type B (PCR) (Negative) RSV RNA Qual (PCR) (Negative) SARS-CoV-2 RNA (RT-PCR) (Negative) 04/07/22 04/07/22 Range/Units 21:17 21:17 WBC (4.8-10.8) X10*3/uL RBC (4.20-5.50) X10*6/uL Hgb (12.0-16.0) g/dl Hct (37.0-47.0) % MCV (80.0-98.0) fL MCH (27.0-33.0) pg MCHC (31.0-35.0) g/dl RDW (11.0-16.0) % Plt Count (160-400) X10*3/uL MPV (9.4-12.3) fL Immature Gran % (Auto) (0.0-0.4) % Neut % (Auto) (45-73) % Lymph % (Auto) (20-40) % Garrard % (Auto) (2-11) % Eos % (Auto) (0-4) % Baso % (Auto) (0-2) % Lymph # (Auto) (1.2-4.9) X10*3/uL Garrard # (Auto) (0.1-1.2) X10*3/uL Eos # (Auto) (0.0-0.4) X10*3/uL Baso # (Auto) (0.0-0.2) X10*3/uL Abs Immat Gran (auto) (0.00-0.03) X10*3/uL Absolute Neuts (auto) (2.0-8.3) x10*3/uL Absolute Nucleated RBC (0.0-0.012) X10*3/uL Nucleated RBC % (auto) (0.0-0.2) /100WBC PT (10.0-13.1) SEC INR (0.9-1.1) Sodium (135-145) mmol/L Potassium (3.3-5.1) mmol/L Chloride (96-108) mmol/L Carbon Dioxide (22-29) mmol/L Anion Gap (12-20) BUN (9-16) mg/dL Creatinine (0.5-1.4) mg/dL Estim Creat Clear Calc Estimated GFR Random Glucose (60-115) mg/dL Calcium (8.4-10.2) mg/dL Magnesium (1.6-2.6) mg/dL Total Bilirubin (0.0-1.0) mg/dL AST (5-31) U/L ALT (0-31) U/L Alkaline Phosphatase (39-117) U/L Total Protein (6.5-8.0) g/dL Albumin (3.5-5.0) g/dL Lipase (8-78) U/L Beta HCG, Quant mIU/mL Urine Color Yellow Urine Appearance Clear Urine pH 7.0 (5.0-9.0) Ur Specific Wright 1.025 (1.005-1.025) Urine Protein Negative (Neg-Trace) mg/dL Urine Glucose (UA) Negative (Negative) mg/dL Urine Ketones Trace (Negative) mg/dL Urine Blood Negative (Negative) Urine Nitrite Negative (Negative) Ur Leukocyte Esterase Negative (Negative) Influenza Type A (PCR) NEGATIVE (Negative) Influenza Type B (PCR) NEGATIVE (Negative) RSV RNA Qual (PCR) NEGATIVE (Negative) SARS-CoV-2 RNA (RT-PCR) NEGATIVE (Negative) <Bayron Ac MD - Last Filed: 04/08/22 04:34> Medications Administered Discontinued Medications Generic Name Dose Route Start Last Admin Trade Name Freq PRN Reason Stop Dose Admin Acetaminophen 975 mg 04/08/22 02:32 04/08/22 02:49 Acetaminophen 325 Mg Tablet PO 04/08/22 02:33 975 mg ONCE STA Administration Sodium Chloride 1,000 mls @ 999 mls/hr 04/08/22 02:32 04/08/22 02:49 Ns IV 04/08/22 03:32 999 mls/hr .Q1H1M STA Administration Ondansetron HCl 4 mg 04/08/22 02:32 04/08/22 02:49 Ondansetron Hcl 4 Mg/2 Ml Vial IVPUSH 04/08/22 02:33 4 mg ONCE ONE Administration <ANABELA Hannah - Last Filed: 04/07/22 20:58> Medications Administered Discontinued Medications Generic Name Dose Route Start Last Admin Trade Name Freq PRN Reason Stop Dose Admin Acetaminophen 975 mg 04/08/22 02:32 04/08/22 02:49 Acetaminophen 325 Mg Tablet PO 04/08/22 02:33 975 mg ONCE STA Administration Sodium Chloride 1,000 mls @ 999 mls/hr 04/08/22 02:32 04/08/22 02:49 Ns IV 04/08/22 03:32 999 mls/hr .Q1H1M STA Administration Ondansetron HCl 4 mg 04/08/22 02:32 04/08/22 02:49 Ondansetron Hcl 4 Mg/2 Ml Vial IVPUSH 04/08/22 02:33 4 mg ONCE ONE Administration <Bayron Ac MD - Last Filed: 04/08/22 04:34> Discharge Plan Discharge Clinical Impression: Acute viral syndrome, Positive blood test, Acute dehydration <ANABELA Hannah - Last Filed: 04/07/22 20:58> Patient Disposition: Home, Self-Care <ANABELA Hannah - Last Filed: 04/07/22 20:58> Instructions: Viral Syndrome (ED) <ANABELA Hannah - Last Filed: 04/07/22 20:58> Additional Instructions: Your blood work [place] [address] otherwise was unremarkable. Your COVID-19, influenza and RSV were negative. At this time I believe that your vomiting abdominal pain is caused by a virus. Take Zofran ODT 4 mg pills, 1 pill dissolved in your mouth every 8 hours as needed for nausea and vomiting. Take Tylenol (acetaminophen) 500 mg pills, 2 pills every 4 to 6 hours as needed for pain or fever. Your blood test (quantitative beta-hCG) was positive at 78. This is very low and could mean that you are 1-2 weeks or you could be someone that has detectable quantitative beta-hCG and not be . In order to figure out if your or not, you will need a repeat quantitative beta HCG in 1 week therefore I want you to follow-up with our OBGYN providers for evaluation and to get a repeat quantitative beta-hCG. Please return to the emergency department if your symptoms get worse or if you develop any symptoms that are concerning to you. <ANABELA Hannah - Last Filed: 04/07/22 20:58> Prescriptions: New ondansetron 4 mg tablet,disintegrating 4 mg PO Q6-8H PRN (Reason: nausea and vomiting) Qty: 14 0RF No Action ibuprofen 600 mg tablet 600 mg PO Q6H PRN (Reason: pain) Qty: 20 0RF ondansetron 4 mg tablet,disintegrating 4 mg PO Q6-8H PRN (Reason: nausea and vomiting) Qty: 14 0RF cephalexin 500 mg capsule 500 mg PO Q6H 7 Days Qty: 28 0RF <ANABELA Hannah - Last Filed: 04/07/22 20:58> Referrals: Guillermo Elena MD [Physician] - 1 week (Positive quantitative beta-hCG at 78, needs repeat in 1 week) <ANABELA Hannah - Last Filed: 04/07/22 20:58>
[2022-04-07 21:24] LABS: Basophils Absolute Auto 0.1 X10*3/uL (0.0-0.2); Basophils Percent Auto 0.4 % (0-2); Eosinophils Absolute Auto 0.4 X10*3/uL (0.0-0.4); Eosinophils Percent Auto 2.8 % (0-4); Hematocrit 38.3 % (37.0-47.0); Hemoglobin 13.3 g/dl (12.0-16.0); Imm Gran Abs Auto 0.11 X10*3/uL (0.00-0.03); Imm Gran Pct Auto 0.8 % (0.0-0.4); Lymphocytes Absolute Auto 2.6 X10*3/uL (1.2-4.9); Lymphocytes Percent Auto 18.9 % (20-40); MANUAL DIFF FLAG NO; Mean Corpuscular HGB Conc 34.7 g/dl (31.0-35.0); Mean Corpuscular Hemoglobin 31.3 pg (27.0-33.0); Mean Corpuscular Volume 90.1 fL (80.0-98.0); Mean Platelet Volume 9.6 fL (9.4-12.3); Monocytes Absolute Auto 0.9 X10*3/uL (0.1-1.2); Monocytes Percent Auto 6.3 % (2-11); Neutrophils Absolute Auto 9.6 x10*3/uL (2.0-8.3); Neutrophils Percent Auto 70.8 % (45-73); Platelet Count 283 X10*3/uL (160-400); Red Blood Count 4.25 X10*6/uL (4.20-5.50); White Blood Count 13.6 X10*3/uL (4.8-10.8)
[2022-04-07 21:25] LABS: Appearance Urine Clear; Color Urine Yellow; Glucose Urine UA Negative (Negative); Leukocyte Esterase Urine Negative (Negative); Nitrite Urine Negative (Negative); Specific Gravity - Urine 1.025 (1.005-1.025); Urine Blood Negative (Negative); Urine Ketones Trace mg/dL (Negative); Urine Protein Negative (Neg-Trace)
[2022-04-07 21:29] LABS: INTERNATIONAL NORM RATIO 1.1 (0.9-1.1); Prothrombin Time 12.4 SEC (10.0-13.1)
[2022-04-07 22:00] LABS: Influenza A PCR NEGATIVE (Negative); Influenza B PCR NEGATIVE (Negative); Resp Syncy Virus RNA Qual PCR NEGATIVE (Negative); SARS COV2 PCR INHOUSE NEGATIVE (Negative)
[2022-04-07 22:11] LABS: Alanine Aminotransferase 26 U/L (0-31); Albumin Level 4.5 g/dL (3.5-5.0); Alkaline Phosphatase 88 U/L (39-117); Anion Gap 16 (12-20); Aspartate Amino Transferase 20 U/L (5-31); Blood Urea Nitrogen 13 mg/dL (9-16); Calcium 9.4 mg/dL (8.4-10.2); Carbon Dioxide 19 mmol/L (22-29); Chloride 105 mmol/L (96-108); Creatinine Clr Calc Pharmacy 126.7; Estimated Glomerular Filt Rate > 60; Glucose Random 79 mg/dL (60-115); Lipase 23 U/L (8-78); Magnesium 1.8 mg/dL (1.6-2.6); Potassium 3.8 mmol/L (3.3-5.1); Sodium 136 mmol/L (135-145); Total Protein 7.7 g/dL (6.5-8.0)
[2022-04-07 22:20] LABS: HCG Quantitative 78 mIU/mL
[2022-04-07 22:21] LABS: Bilirubin Total 0.4 mg/dL (0.0-1.0)
[2022-04-07 23:49] VITALS: BP 145/81; PULSE 78; RESP 16; TEMP 36.7; O2SAT 99
[2022-04-08] MEDS: ondansetron HCL 4 MG/2 ML VIAL IVPUSH (02:49)
[2022-04-08] MEDS: Acetaminophen 325 MG TABLET 975 MG PO (02:49)
[2022-04-08] MEDS: 0.9 % Sodium Chloride 1,000 ML 999 ML IV (02:49)
== END 2022-04-08 04:38 | disposition home or self-care (01) ==
PROVIDERS: Physician Assistant Medical; Emergency Provider Emergency Medicine Emergency Medical Services; PCP Nurse Practitioner Pediatrics
DX: B34.9 Viral infection, unspecified (principal); R11.2 Nausea with vomiting, unspecified; R05.9 Cough, unspecified; R10.9 Unspecified abdominal pain; E86.0 Dehydration; Z20.822 Contact with and (suspected) exposure to COVID-19; Z79.899 Other long term (current) drug therapy
CPT/HCPCS: 0241U; 80053; 81003; 83690; 83735; 84702; 85025; 85610; 96361; 96374; 99283; 99284; J2405

== ENCOUNTER 2022-08-04 15:44 | Emergency (ER) | payer OTHER, SELFPAY ==
[2022-08-04 16:16] VITALS: BP 142/70; PULSE 105; RESP 18; O2SAT 95; BMI 34.9
--- NOTE | 2022-08-04 16:19 | ED_ITS ---
HPI - General Adult General Chief complaint: General Medical <ANABELA Bo Last Filed: 08/04/22 16:21> Stated complaint: cough/vomiting <ANABELA Bo Last Filed: 08/04/22 16:21> Time Seen by Provider: 08/04/22 19:03 <ANABELA Bo Last Filed: 08/04/22 16:21> Source: patient <ANABELA Nguyen - Last Filed: 08/04/22 22:19> Mode of arrival: ambulatory <ANABELA Nguyen Last Filed: 08/04/22 22:19> Limitations: no limitations <ANABELA Nguyen Last Filed: 08/04/22 22:19> History of Present Illness HPI narrative: 21-year-old female w/ one [facility] around 9 weeks presents with nausea, vomiting, congetion, dry cough, anorexia, subjective fevers and chills, diffuse severe abd pain X 2 days. Patient reports for the last 2 days everything she tries to eat and drink she ends up throwing up. She reports diffuse abdomin al pain however significantly worse in the lower abdomen. Patient tells me she has not had any known sick contacts. Tells me that even when she tries to drink water she vomits. Reports normal movement. Denies chest pain, shortness of breath, hematemesis, headache, vision changes, dizziness or weakness. No contractions. <ANABELA Nguyen Last Filed: 08/04/22 22:19> Related Data Home medications: Previous Rx's Medication Instructions Recorded ibuprofen 600 mg tablet 600 mg PO Q6H PRN pain #20 tabs 06/22/21 cephalexin 500 mg capsule 500 mg PO Q6H Bacterial 07/06/21 pharyngitis/UTI 7 days #28 caps ondansetron 4 mg disintegrating 4 mg PO Q6-8H PRN nausea and 07/06/21 tablet vomiting #14 tabs ondansetron 4 mg disintegrating 4 mg PO Q6-8H PRN nausea and 04/08/22 tablet vomiting #14 tabs <ANABELA Bo Last Filed: 08/04/22 16:21> Allergies/adverse reactions: Allergies Allergy/AdvReac Type Severity Reaction Status Date / Time No Known Allergies Allergy Verified 06/22/21 15:48 <ANABELA Bo - Last Filed: 08/04/22 16:21> Review of Systems Review of Systems: Constitutional : No Weight loss, + Fever, + Chills, + Fatigue, + Malaise ENT/Mouth : No sore throat, No Rhinorrhea Eyes: No Eye Pain, No Swelling, No Redness Cardiovascular : No Chest Pain, No SOB, No Dyspnea on Exertion, No Orthopnea, No Edema, No Palpitations Respiratory : + Cough, No Sputum, No Wheezing Gastrointestinal : + Nausea, + Vomiting, No Diarrhea, No Constipation, + abdominal Pain, No Hematochezia, No Melena Genitourinary : No Dysuria, No Urinary Frequency, No Hematuria, Musculoskeletal : No joint pain, No Myalgias, No Joint Swelling Skin : No Skin Lesions, No rash Neuro : No Weakness, No Numbness, No Dizziness, No Headache Psych : No Anxiety/Panic, No Depression All other systems reviewed and are negative <ANABELA Nguyen - Last Filed: 08/04/22 22:19> Yes all other systems are reviewed and are negative <ANABELA Nguyen - Last Filed: 08/04/22 22:19> [facility] Past Medical History Attestation statement: The following information was validated with the patient. <ANABELA Nguyen - Last Filed: 08/04/22 22:19> Source: old records reviewed and nursing notes reviewed <ANABELA Nguyen - Last Filed: 08/04/22 22:19> Medical History: Medical History No known health problems <ANABELA Bo - Last Filed: 08/04/22 16:21> Social History Social History: Social History Alcohol intake: never Patient Tobacco Use Status: Never used Tobacco Smoked in Last 30 Days: No Use of substances other than those prescribed or required for medical reasons: No Substance Use Type: Marijuana Advance Directives: No Advance Directives Information Provided: No Patient : Yes <ANABELA Bo Last Filed: 08/04/22 16:21> Physical Exam ED Vital Signs: Vital Signs - 24 hr 08/04/22 16:16 08/04/22 19:30 Temperature 98.3 F Pulse Rate 105 H 89 Respiratory Rate 18 20 Blood Pressure 142/70 H 112/72 Pulse Oximetry 95 96 Oxygen Delivery Method Room Air Room Air BMI result Body Mass Index 34.9 <ANABELA Bo - Last Filed: 08/04/22 16:21> Vital Signs - 24 hr 08/04/22 16:16 08/04/22 19:30 Temperature 98.3 F Pulse Rate 105 H 89 Respiratory Rate 18 20 Blood Pressure 142/70 H 112/72 Pulse Oximetry 95 96 Oxygen Delivery Method Room Air Room Air BMI result Body Mass Index 34.9 vss <ANABELA Nguyen - Last Filed: 08/04/22 22:19> Appearance: Alert.? Oriented X3.? No acute distress.? Head: Normocephalic, atraumatic, no step-offs or deformities Eyes: Pupils equal, round and reactive to light.? Neck: Normal inspection.? Neck supple.? CVS: Normal heart rate and rhythm.? Pulses normal.? Respiratory: No respiratory distress.? Breath sounds normal.? Abdomen: Soft and diffuses abd pain.? Skin: Skin warm and dry.? Normal skin color.? Normal skin turgor.? Extremities: No lower extremity edema.? No calf ttp. 5/5 strength to bilateral upper and lower extremities Neuro: Oriented X 3.? No motor deficit.? No sensory deficit. CN 2-12 intact <ANABELA Nguyen - Last Filed: 08/04/22 22:19> Course Course Course Narrative: RME--21-year-old female at 5 months gestation presenting to the ED complaining of cough, congestion, nausea/vomiting and decreased p.o. intake x2 weeks Labs, UA, SARS/FLU/RSV, strep ordered <ANABELA Bo Last Filed: 08/04/22 16:21> Reevaluation(s) Reevaluation #1: CBC appears to be with a slight leukocytosis 11.6 and a normocytic anemia 11.9 and 33.3. Chemistry unremarkable no acute electrolyte abnormalities requiring intervention. Normal lipase. Serology, strep, flu, RSV, COVID negative. heart tones within normal limits. Patient still reports severe abdominal pain, nausea. Reached out to Dr. Kassy Strong who recommended transfer to [facility]. <ANABELA Nguyen - Last Filed: 08/04/22 22:19> Time: 20:55 <ANABELA Nguyen - Last Filed: 08/04/22 22:19> Reevaluation #2: I spoke to OBGYN resident who states patient was accepted at [facility] and requires higher level of care, will go to [address] Soriano. <ANABELA Nguyen - Last Filed: 08/04/22 22:19> Time: 22:02 <ANABELA Nguyen - Last Filed: 08/04/22 22:19> Reevaluation #3: Patient adamantly refusing transfer to [facility] via ambulance she will go via private vehicle. <ANABELA Nguyen - Last Filed: 08/04/22 22:19> Time: 22:19 <ANABELA Nguyen - Last Filed: 08/04/22 22:19> Medications Administered Generic Name Dose Route Start Last Admin Trade Name Freq PRN Reason Stop Dose Admin Sodium Chloride 1,000 mls @ 999 mls/hr 08/04/22 22:00 08/04/22 22:03 Ns IV 08/04/22 23:00 999 mls/hr .Q1H1M ALEC Administration Sodium Chloride 1,000 mls @ 999 mls/hr 08/04/22 22:00 08/04/22 22:03 Ns IV 08/04/22 23:00 999 mls/hr .Q1H1M ALEC Administration <ANABELA Bo - Last Filed: 08/04/22 16:21> Medications Administered Generic Name Dose Route Start Last Admin Trade Name Freq PRN Reason Stop Dose Admin Sodium Chloride 1,000 mls @ 999 mls/hr 08/04/22 22:00 08/04/22 22:03 Ns IV 08/04/22 23:00 999 mls/hr .Q1H1M ALEC Administration Sodium Chloride 1,000 mls @ 999 mls/hr 08/04/22 22:00 04/11/23 22:03 Ns IV 08/04/22 23:00 999 mls/hr .Q1H1M ALEC Administration <ANABELA Nguyen - Last Filed: 08/04/22 22:19> Medical Decision Making Medical Decision Making [facility] Narrative: [id number] 21-year-old female currently about 5 months presents for evaluation of nausea, vomiting, anorexia, dry cough, congestion, severe abdominal pain x2 days worsening. Physical exam with diffuse abdominal tenderness. Patient nontoxic appearing. Vital signs stable. This is likely viral in nature. Unlikely acute abdomen, diverticulitis, p ancreatitis, cholecystitis. Unlikely demise. History and physical exam not consistent with pre term labor. Plan at this time basic labs, heart tones, urine, viral testing. Will give fluids. <ANABELA Nguyen - Last Filed: 08/04/22 22:19> Differential Diagnosis Differential Diagnoses: The differential diagnosis associated with the presentation includes <ANABELA Nguyen - Last Filed: 08/04/22 22:19> This is likely viral in nature. Unlikely acute abdomen, diverticulitis, pancreatitis, cholecystitis. Unlikely demise. History and physical exam not consistent with pre term labor. <ANABELA Nguyen - Last Filed: 08/04/22 22:19> Admission/Observation Consideration of admission/observation: Escalation of care including admission/observation considered <ANABELA Nguyen - Last Filed: 08/04/22 22:19> Likely OBGYN <ANABELA Nguyen - Last Filed: 08/04/22 22:19> Lab Data [facility] Lab Attestation statement: I reviewed the patient's lab results. <ANABELA Nguyen - Last Filed: 08/04/22 22:19> Result Diagrams: 08/04/22 16:35 08/04/22 16:35 <ANABELA Bo - Last Filed: 08/04/22 16:21> Labs: Lab Results 08/04/22 08/04/22 08/04/22 Range/Units 16:29 16:32 16:35 WBC 11.6 H (4.8-10.8) X10*3/uL RBC 3.68 L (4.20-5.50) X10*6/uL Hgb 11.9 L (12.0-16.0) g/dl Hct 33.3 L (37.0-47.0) % MCV 90.5 (80.0-98.0) fL MCH 32.3 (27.0-33.0) pg MCHC 35.7 H (31.0-35.0) g/dl RDW 13.2 (11.0-16.0) % Plt Count 269 (160-400) X10*3/uL MPV 9.8 (9.4-12.3) fL Immature Gran % (Auto) 1.0 H (0.0-0.4) % Neut % (Auto) 77.4 H (45-73) % Lymph % (Auto) 10.1 L (20-40) % [place] % (Auto) 7.9 (2-11) % Eos % (Auto) 3.3 (0-4) % Baso % (Auto) 0.3 (0-2) % Lymph # (Auto) 1.2 (1.2-4.9) X10*3/uL [place] # (Auto) 0.9 (0.1-1.2) X10*3/uL Eos # (Auto) 0.4 (0.0-0.4) X10*3/uL Baso # (Auto) 0.0 (0.0-0.2) X10*3/uL Abs Immat Gran (auto) 0.12 H (0.00-0.03) X10*3/uL Absolute Neuts (auto) 9.0 H (2.0-8.3) x10*3/uL Absolute Nucleated RBC 0.000 (0.0-0.012) X10*3/uL Nucleated RBC % (auto) 0.0 (0.0-0.2) /100WBC Sodium (135-145) mmol/L Potassium (3.3-5.1) mmol/L Chloride (96-108) mmol/L Carbon Dioxide (22-29) mmol/L Anion Gap (12-20) BUN (9-16) mg/dL Creatinine (0.5-1.4) mg/dL Estim Creat Clear Calc Estimated GFR Random Glucose (60-115) mg/dL Calcium (8.4-10.2) mg/dL Magnesium (1.6-2.6) mg/dL Total Bilirubin (0.0-1.0) mg/dL Direct Bilirubin (0.0-0.5) mg/dL AST (5-31) U/L ALT (0-31) U/L Alkaline Phosphatase (39-117) U/L Total Protein (6.5-8.0) g/dL Albumin (3.5-5.0) g/dL Lipase (8-78) U/L Beta HCG, Quant mIU/mL Urine Color Urine Appearance Urine pH (5.0-9.0) Ur Specific [place] (1.005-1.025) Urine Protein (Neg-Trace) mg/dL Urine Glucose (UA) (Negative) mg/dL Urine Ketones (Negative) mg/dL Urine Blood (Negative) Urine Nitrite (Negative) Ur Leukocyte Esterase (Negative) Influenza Type A (PCR) NEGATIVE (Negative) Influenza Type B (PCR) NEGATIVE (Negative) RSV RNA Qual (PCR) NEGATIVE (Negative) SARS-CoV-2 RNA (RT-PCR) NEGATIVE (Negative) S. pyogenes GrpA HIRO Negative (Negative) 08/04/22 08/04/22 Range/Units 16:35 22:04 WBC (4.8-10.8) X10*3/uL RBC (4.20-5.50) X10*6/uL Hgb (12.0-16.0) g/dl Hct (37.0-47.0) % MCV (80.0-98.0) fL MCH (27.0-33.0) pg MCHC (31.0-35.0) g/dl RDW (11.0-16.0) % Plt Count (160-400) X10*3/uL MPV (9.4-12.3) fL Immature Gran % (Auto) (0.0-0.4) % Neut % (Auto) (45-73) % Lymph % (Auto) (20-40) % [place] % (Auto) (2-11) % Eos % (Auto) (0-4) % Baso % (Auto) (0-2) % Lymph # (Auto) (1.2-4.9) X10*3/uL [place] # (Auto) (0.1-1.2) X10*3/uL Eos # (Auto) (0.0-0.4) X10*3/uL Baso # (Auto) (0.0-0.2) X10*3/uL Abs Immat Gran (auto) (0.00-0.03) X10*3/uL Absolute Neuts (auto) (2.0-8.3) x10*3/uL Absolute Nucleated RBC (0.0-0.012) X10*3/uL Nucleated RBC % (auto) (0.0-0.2) /100WBC Sodium 138 (135-145) mmol/L Potassium 3.6 (3.3-5.1) mmol/L Chloride 106 (96-108) mmol/L Carbon Dioxide 23 (22-29) mmol/L Anion Gap 13 (12-20) BUN 6 L (9-16) mg/dL Creatinine 0.58 (0.5-1.4) mg/dL Estim Creat Clear Calc 150.7 Estimated GFR > 60 Random Glucose 83 (60-115) mg/dL Calcium 9.1 (8.4-10.2) mg/dL Magnesium 1.9 (1.6-2.6) mg/dL Total Bilirubin 0.4 (0.0-1.0) mg/dL Direct Bilirubin 0.1 (0.0-0.5) mg/dL AST 17 (5-31) U/L ALT 15 (0-31) U/L Alkaline Phosphatase 92 (39-117) U/L Total Protein 6.9 (6.5-8.0) g/dL Albumin 3.8 (3.5-5.0) g/dL Lipase 14 (8-78) U/L Beta HCG, Quant 11280 mIU/mL Urine Color Yellow Urine Appearance Turbid Urine pH 6.5 (5.0-9.0) Ur Specific [place] 1.025 (1.005-1.025) Urine Protein 30 (1+) H (Neg-Trace) mg/dL Urine Glucose (UA) Negative (Negative) mg/dL Urine Ketones >=160 (Negative) mg/dL Urine Blood Negative (Negative) Urine Nitrite Negative (Negative) Ur Leukocyte Esterase Small (1+) H (Negative) Influenza Type A (PCR) (Negative) Influenza Type B (PCR) (Negative) RSV RNA Qual (PCR) (Negative) SARS-CoV-2 RNA (RT-PCR) (Negative) S. pyogenes GrpA HIRO (Negative) <ANABELA Bo - Last Filed: 08/04/22 16:21> Lab Results 08/04/22 08/04/22 08/04/22 Range/Units 16:29 16:32 16:35 WBC 11.6 H (4.8-10.8) X10*3/uL RBC 3.68 L (4.20-5.50) X10*6/uL Hgb 11.9 L (12.0-16.0) g/dl Hct 33.3 L (37.0-47.0) % MCV 90.5 (80.0-98.0) fL MCH 32.3 (27.0-33.0) pg MCHC 35.7 H (31.0-35.0) g/dl RDW 13.2 (11.0-16.0) % Plt Count 269 (160-400) X10*3/uL MPV 9.8 (9.4-12.3) fL Immature Gran % (Auto) 1.0 H (0.0-0.4) % Neut % (Auto) 77.4 H (45-73) % Lymph % (Auto) 10.1 L (20-40) % [place] % (Auto) 7.9 (2-11) % Eos % (Auto) 3.3 (0-4) % Baso % (Auto) 0.3 (0-2) % Lymph # (Auto) 1.2 (1.2-4.9) X10*3/uL [place] # (Auto) 0.9 (0.1-1.2) X10*3/uL Eos # (Auto) 0.4 (0.0-0.4) X10*3/uL Baso # (Auto) 0.0 (0.0-0.2) X10*3/uL Abs Immat Gran (auto) 0.12 H (0.00-0.03) X10*3/uL Absolute Neuts (auto) 9.0 H (2.0-8.3) x10*3/uL Absolute Nucleated RBC 0.000 (0.0-0.012) X10*3/uL Nucleated RBC % (auto) 0.0 (0.0-0.2) /100WBC Sodium (135-145) mmol/L Potassium (3.3-5.1) mmol/L Chloride (96-108) mmol/L Carbon Dioxide (22-29) mmol/L Anion Gap (12-20) BUN (9-16) mg/dL Creatinine (0.5-1.4) mg/dL Estim Creat Clear Calc Estimated GFR Random Glucose (60-115) mg/dL Calcium (8.4-10.2) mg/dL Magnesium (1.6-2.6) mg/dL Total Bilirubin (0.0-1.0) mg/dL Direct Bilirubin (0.0-0.5) mg/dL AST (5-31) U/L ALT (0-31) U/L Alkaline Phosphatase (39-117) U/L Total Protein (6.5-8.0) g/dL Albumin (3.5-5.0) g/dL Lipase (8-78) U/L Beta HCG, Quant mIU/mL Urine Color Urine Appearance Urine pH (5.0-9.0) Ur Specific [place] (1.005-1.025) Urine Protein (Neg-Trace) mg/dL Urine Glucose (UA) (Negative) mg/dL Urine Ketones (Negative) mg/dL Urine Blood (Negative) Urine Nitrite (Negative) Ur Leukocyte Esterase (Negative) Influenza Type A (PCR) NEGATIVE (Negative) Influenza Type B (PCR) NEGATIVE (Negative) RSV RNA Qual (PCR) NEGATIVE (Negative) SARS-CoV-2 RNA (RT-PCR) NEGATIVE (Negative) S. pyogenes GrpA HIRO Negative (Negative) 08/04/22 08/04/22 Range/Units 16:35 22:04 WBC (4.8-10.8) X10*3/uL RBC (4.20-5.50) X10*6/uL Hgb (12.0-16.0) g/dl Hct (37.0-47.0) % MCV (80.0-98.0) fL MCH (27.0-33.0) pg MCHC (31.0-35.0) g/dl RDW (11.0-16.0) % Plt Count (160-400) X10*3/uL MPV (9.4-12.3) fL Immature Gran % (Auto) (0.0-0.4) % Neut % (Auto) (45-73) % Lymph % (Auto) (20-40) % [place] % (Auto) (2-11) % Eos % (Auto) (0-4) % Baso % (Auto) (0-2) % Lymph # (Auto) (1.2-4.9) X10*3/uL [place] # (Auto) (0.1-1.2) X10*3/uL Eos # (Auto) (0.0-0.4) X10*3/uL Baso # (Auto) (0.0-0.2) X10*3/uL Abs Immat Gran (auto) (0.00-0.03) X10*3/uL Absolute Neuts (auto) (2.0-8.3) x10*3/uL Absolute Nucleated RBC (0.0-0.012) X10*3/uL Nucleated RBC % (auto) (0.0-0.2) /100WBC Sodium 138 (135-145) mmol/L Potassium 3.6 (3.3-5.1) mmol/L Chloride 106 (96-108) mmol/L Carbon Dioxide 23 (22-29) mmol/L Anion Gap 13 (12-20) BUN 6 L (9-16) mg/dL Creatinine 0.58 (0.5-1.4) mg/dL Estim Creat Clear Calc 150.7 Estimated GFR > 60 Random Glucose 83 (60-115) mg/dL Calcium 9.1 (8.4-10.2) mg/dL Magnesium 1.9 (1.6-2.6) mg/dL Total Bilirubin 0.4 (0.0-1.0) mg/dL Direct Bilirubin 0.1 (0.0-0.5) mg/dL AST 17 (5-31) U/L ALT 15 (0-31) U/L Alkaline Phosphatase 92 (39-117) U/L Total Protein 6.9 (6.5-8.0) g/dL Albumin 3.8 (3.5-5.0) g/dL Lipase 14 (8-78) U/L Beta HCG, Quant 60738 mIU/mL Urine Color Yellow Urine Appearance Turbid Urine pH 6.5 (5.0-9.0) Ur Specific [place] 1.025 (1.005-1.025) Urine Protein 30 (1+) H (Neg-Trace) mg/dL Urine Glucose (UA) Negative (Negative) mg/dL Urine Ketones >=160 (Negative) mg/dL Urine Blood Negative (Negative) Urine Nitrite Negative (Negative) Ur Leukocyte Esterase Small (1+) H (Negative) Influenza Type A (PCR) (Negative) Influenza Type B (PCR) (Negative) RSV RNA Qual (PCR) (Negative) SARS-CoV-2 RNA (RT-PCR) (Negative) S. pyogenes GrpA HIRO (Negative) <ANABELA Nguyen - Last Filed: 08/04/22 22:19> Core Measures AMI core measures followed: Yes <ANABELA Nguyen - Last Filed: 08/04/22 22:19> Measure exclusions: not indicated <ANABELA Nguyen - Last Filed: 08/04/22 22:19> Critical Care Time Critical Care Time Critical Care Time: Yes <ANABELA Nguyen - Last Filed: 08/04/22 22:19> Total Critical Care Time: 35 <ANABELA Nguyen - Last Filed: 08/04/22 22:19> Attestation: I attest to this time spent taking care of the patient, obtaining history, physical, reviewing labs, imaging, speaking to my attending, speaking to specialist. <ANABELA Nguyen - Last Filed: 08/04/22 22:19> Discharge Plan Discharge Clinical Impression: Abdominal pain during , Nausea & vomiting, Cough, Viral illness <ANABELA Bo - Last Filed: 08/04/22 16:21> Patient Disposition: [facility] <ANABELA Bo - Last Filed: 08/04/22 16:21> Transfer Details: [facility] Dr. Soriano <ANABELA Bo - Last Filed: 08/04/22 16:21> [facility] Dr. Soriano <ANABELA Nguyen - Last Filed: 08/04/22 22:19> Prescriptions: No Action ibuprofen 600 mg tablet 600 mg PO Q6H PRN (Reason: pain) Qty: 20 0RF ondansetron 4 mg tablet,disintegrating 4 mg PO Q6-8H PRN (Reason: nausea and vomiting) Qty: 14 0RF ondansetron 4 mg tablet,disintegrating 4 mg PO Q6-8H PRN (Reason: nausea and vomiting) Qty: 14 0RF cephalexin 500 mg capsule 500 mg PO Q6H 7 Days Qty: 28 0RF <ANABELA Bo - Last Filed: 08/04/22 16:21>
[2022-08-04 16:40] LABS: MANUAL DIFF FLAG NO
[2022-08-04 16:47] LABS: Basophils Percent Auto 0.3 % (0-2); Eosinophils Absolute Auto 0.4 X10*3/uL (0.0-0.4); Eosinophils Percent Auto 3.3 % (0-4); Hematocrit 33.3 % (37.0-47.0); Hemoglobin 11.9 g/dl (12.0-16.0); Imm Gran Abs Auto 0.12 X10*3/uL (0.00-0.03); Lymphocytes Absolute Auto 1.2 X10*3/uL (1.2-4.9); Lymphocytes Percent Auto 10.1 % (20-40); Mean Corpuscular HGB Conc 35.7 g/dl (31.0-35.0); Mean Corpuscular Hemoglobin 32.3 pg (27.0-33.0); Mean Corpuscular Volume 90.5 fL (80.0-98.0); Mean Platelet Volume 9.8 fL (9.4-12.3); Monocytes Absolute Auto 0.9 X10*3/uL (0.1-1.2); Monocytes Percent Auto 7.9 % (2-11); Neutrophils Percent Auto 77.4 % (45-73); Platelet Count 269 X10*3/uL (160-400); Red Blood Count 3.68 X10*6/uL (4.20-5.50); Red Cell Distribution Width 13.2 % (11.0-16.0); White Blood Count 11.6 X10*3/uL (4.8-10.8)
[2022-08-04 17:02] LABS: IDNOW Serial# 08D9AD1C; Strep A Nucleic Acid Negative (Negative)
[2022-08-04 17:11] LABS: Alanine Aminotransferase 15 U/L (0-31); Albumin Level 3.8 g/dL (3.5-5.0); Alkaline Phosphatase 92 U/L (39-117); Anion Gap 13 (12-20); Aspartate Amino Transferase 17 U/L (5-31); Bilirubin Direct 0.1 mg/dL (0.0-0.5); Bilirubin Total 0.4 mg/dL (0.0-1.0); Blood Urea Nitrogen 6 mg/dL (9-16); Calcium 9.1 mg/dL (8.4-10.2); Carbon Dioxide 23 mmol/L (22-29); Chloride 106 mmol/L (96-108); Creatinine Clr Calc Pharmacy 150.7; Estimated Glomerular Filt Rate > 60; Glucose Random 83 mg/dL (60-115); Lipase 14 U/L (8-78); Magnesium 1.9 mg/dL (1.6-2.6); Potassium 3.6 mmol/L (3.3-5.1); Sodium 138 mmol/L (135-145); Total Protein 6.9 g/dL (6.5-8.0)
[2022-08-04 17:24] LABS: Influenza A PCR NEGATIVE (Negative); Influenza B PCR NEGATIVE (Negative); Resp Syncy Virus RNA Qual PCR NEGATIVE (Negative); SARS COV2 PCR INHOUSE NEGATIVE (Negative)
[2022-08-04 17:41] LABS: HCG Quantitative 16455 mIU/mL
[2022-08-04 19:30] VITALS: BP 112/72; PULSE 89; RESP 20; TEMP 36.8; O2SAT 96
--- NOTE | 2022-08-04 19:30 | PC.NURSE ---
Patient states that starting on she was having some nausea and vomiting, but it had subsided. Then yesterday she started to have nausea and vomiting again associated with the cough and has been unable to keep food or fluids down for the past day. Patient with emesis bag with phlegm noted in bag, patient states that due to the fact that she really hasn't been able to eat that she doesn't really have anything to throw up at this time.
--- NOTE | 2022-08-04 20:51 | PC.NURSE ---
heart rate obtained via doppler. Heart rate noted to be 156 and strong.
--- NOTE | 2022-08-04 21:05 | PM.OBCN ---
OB Consult Note - [facility] Data Service Date: 08/04/22 Primary Care Provider: None Physician Narrative I was consulted at 20:54 regarding Dede Hamm who is a 21 year old female at 20 weeks gestation who presented to the ED complaining of cough, congestion, nausea/vomiting associated with diffuse abdominal pain worse in the lower abdomen and dry cough of 2 days duration, no leakage of fluid or bleeding. Good movement. The following workup was done emergency room :WBC 11.6, H&H 11.9/33.3, urine pending OB PMFSH Past Medical History Medical History No known health problems Social History Social History Alcohol intake: never Patient Tobacco Use Status: Never used Tobacco Smoked in Last 30 Days: No Use of substances other than those prescribed or required for medical reasons: No Substance Use Type: Marijuana Advance Directives: No Advance Directives Information Provided: No Patient : Yes Meds Allergies Allergy/AdvReac Type Severity Reaction Status Date / Time No Known Allergies Allergy Verified 06/22/21 15:48 OB Physical Exam Physical Exam Additional Comments: Reported by ANABELA Nguyen as the following: Abdomen: tender to palpation Evaluation Estimated Weight: 155 lb OB Consult Results Labs 08/04/22 16:35 08/04/22 16:35 Labs: Short CBC 08/04/22 Range/Units 16:35 WBC 11.6 H (4.8-10.8) X10*3/uL Hgb 11.9 L (12.0-16.0) g/dl Hct 33.3 L (37.0-47.0) % Plt Count 269 (160-400) X10*3/uL BMP 08/04/22 16:35 Sodium 138 Potassium 3.6 Chloride 106 Carbon Dioxide 23 BUN 6 L Creatinine 0.58 Calcium 9.1 Liver Function 08/04/22 Range/Units 16:35 Total Bilirubin 0.4 (0.0-1.0) mg/dL Direct Bilirubin 0.1 (0.0-0.5) mg/dL AST 17 (5-31) U/L ALT 15 (0-31) U/L Alkaline Phosphatase 92 (39-117) U/L Albumin 3.8 (3.5-5.0) g/dL OB - CN: A/P Assessment and Plan (1) with generalized abdominal pain, antepartum: Status: Acute Plan Recommended to ANABELA Nguyen: Transfer the patient out as soon as possible since is no maternity unit at [facility] in order to prevent any delay in diagnosis and treatment I spent a total of 20 minutes reviewing the chart , communicating with the emergency room provider and documenting in the medical record Time Spent With Patient Time: Total time managing care of this patient today ____ minutes.
[2022-08-04] MEDS: 0.9 % Sodium Chloride 1,000 ML 999 ML IV ×2 (22:03)
--- NOTE | 2022-08-04 22:05 | PC.NURSE ---
IV established, IVF infusing. UA obtained and sent. Continue to monitor..
[2022-08-04 22:15] LABS: Appearance Urine Turbid; Color Urine Yellow; Glucose Urine UA Negative (Negative); Leukocyte Esterase Urine Small (1+) (Negative); Nitrite Urine Negative (Negative); PH 6.5 (5.0-9.0); Specific Gravity - Urine 1.025 (1.005-1.025); UMIC TRIGGER UACC YES; Urine Blood Negative (Negative); Urine Ketones >=160 mg/dL (Negative); Urine Protein 30 (1+) mg/dL (Neg-Trace)
--- NOTE | 2022-08-04 22:27 | MHC.EDTECH ---
PT WILL BE GOING TO 2 AT [facility]. [facility] WAS BOOKED INITIALLY FOR BLS TRANSFER. PT THEN CHANGED THEIR MIND AND REFUSED TO GO BY AMBULANCE. RN AND PROVIDER ARE AWARE PT WILL BE GOING BY PRIVATE CAR
[2022-08-04 22:29] LABS: Bacteria Urine 3+ (None Seen); Hyaline Casts Urine 0-2 /LPF (0-2); Squamous Epithelial Cell Urine >20 /HPF (0-2); UACC Culture Trigger YES
[2022-08-04 22:45] VITALS: BP 110/70; PULSE 88; RESP 16
--- NOTE | 2022-08-04 22:54 | PC.NURSE ---
Pt refusing ambulance transport to [facility]. Pt agreeable to drive self by private car. IV removed. Pt provided the appropriate paperwork for [facility].
== END 2022-08-04 22:58 | disposition short-term general hospital (02) ==
PROVIDERS: Physician Assistant; Emergency Provider Student in an Organized Health Care Education/Training Program
DX: O98.511 Other viral diseases complicating pregnancy, first trimester (principal); R10.84 Generalized abdominal pain; R05.9 Cough, unspecified; Z3A.09 9 weeks gestation of pregnancy; Z79.899 Other long term (current) drug therapy; Z20.822 Contact with and (suspected) exposure to COVID-19; Z20.828 Contact with and (suspected) exposure to other viral communicable diseases
CPT/HCPCS: 0241U; 80048; 80076; 81001; 83690; 83735; 84702; 85025; 87086; 87651; 99285

== ENCOUNTER 2024-01-13 11:16 | Outpatient (REF) | payer OTHER, SELFPAY ==
--- NOTE | ~2024-01-13 | XR_ITS ---
EXAMINATION: XR HAND, LEFT CLINICAL INFORMATION: M79.642 - Pain in left hand COMPARISON: None available. TECHNIQUE: PA, lateral, and oblique views of the left hand. FINDINGS: Normal bone mineralization. No fracture, dislocation, or suspicious bone lesions. There is normal alignment. Carpal bones are intact and normally aligned. There are no arthritic changes or erosions identified. The soft tissues appear normal. XR/XR hand LT min 3V IMPRESSION: Normal left hand. Electronically signed by: Brian Valera MD 03/25/2024 07:49 PM EST
--- NOTE | ~2024-01-13 | XR_ITS ---
EXAMINATION: XR HAND, RIGHT CLINICAL INFORMATION: M79.641 - Pain in right hand COMPARISON: None available. TECHNIQUE: PA, lateral, and oblique views of the right hand. FINDINGS: Normal bone mineralization. No fracture, dislocation, or suspicious bone lesions. There is normal alignment. Carpal bones are intact and normally aligned. There are no arthritic changes or erosions identified. The soft tissues appear normal. XR/XR hand RT min 3V IMPRESSION: Normal right hand. Electronically signed by: Brian Valera MD 03/25/2024 07:48 PM EST
== END 2024-01-13 11:17 | disposition home or self-care (01) ==
LOC: HO.HOSX 11:16
DX: S66.912A Strain of unspecified muscle, fascia and tendon at wrist and hand level, left hand, initial encounter (principal); S66.911A Strain of unspecified muscle, fascia and tendon at wrist and hand level, right hand, initial encounter; M79.642 Pain in left hand; M79.641 Pain in right hand; R20.2 Paresthesia of skin; R20.0 Anesthesia of skin; X58.XXXA Exposure to other specified factors, initial encounter; Y93.9 Activity, unspecified; Y92.9 Unspecified place or not applicable; Y99.0 Civilian activity done for income or pay
CPT/HCPCS: 73130; 99202

== ENCOUNTER → 2024-01-13 11:20 | Outpatient (BNV) | payer OTHER, SELFPAY | PROVIDERS: Visit Provider Radiology Diagnostic Radiology | DX: M79.641 Pain in right hand (principal); M79.642 Pain in left hand | CPT/HCPCS: 73130 ==

== ENCOUNTER 2024-01-13 11:47 | Outpatient (AMB) | payer OTHER, SELFPAY ==
--- NOTE | 2024-01-13 11:47 | A.OFFVIS_ITS ---
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 Pt states on 12/20/23 she states she was scrubbing the wall at work and both of her hands became very sore. 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 Pt states on 12/22/23 she was seen at urgent care and she was put on work restrictions and was also given hand braces to use at bedtime. Pt states she started PT on wednesday. 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 Patient was previously evaluated at urgent Care, where she was given bilateral hand braces to wear at night. Patient reports that this numbness and tingling is intermittent, but daily, and much worse at night, and regularly prevents her from sleeping. Patient states that 1 hand does not bother her more than the other. No other acute complaints or concerns at this time. [facility] Medical History No known health problems Social History Alcohol intake: never Patient Tobacco Use Status: Never used Tobacco Substance Use Type: Marijuana Physical Exam Extrem Other: Neuro: Decreased sensation in the median nerve distribution of the right hand. Normal sensation to all other digits in the right hand today. Normal sensation in the tips of all digits of the left hand today. No thenar or intrinsic wasting. Good APB muscle firing and good finger cross. Vascular: Capillary refill brisk. ROM: Patient can make a fist and extend all their digits. Skin: No lacerations or abrasions noted. General: No ecchymosis. No erythema or evidence of infection. Assessment & Plan Assessment & Plan (1) Numbness and tingling in both hands: Code(s): R20.0 - Anesthesia of skin; R20.2 - Paresthesia of skin Category: Medical Plan 1. Bilateral hand numbness and tingling Symptoms intermittent, daily, worse at night At this time, patient is referred for EMG and nerve conduction study to assess the health of the nerves of bilateral upper extremities Patient is amenable to this plan In the meantime, patient is advised to continue wearing braces at night if they help, but is informed that she should not wear them during the day, to prevent stiffness of the hand and wrist Patient will follow-up after EMG and nerve conduction study for results review, sooner with any acute concerns Orders: Orders XR hand RT min 3V Today M79.641 - Pain in right hand NE electromyogram (EMG) Today R20.0 - Anesthesia of skin, R20.2 - Paresthesia of skin NE nerve conduction velocity Today R20.0 - Anesthesia of skin, R20.2 - Paresthesia of skin XR hand LT min 3V Today M79.642 - Pain in left hand Medications: Discontinued ibuprofen Discontinued Reason: Patient no longer taking 600 mg PO Q6H PRN 20 tabs 0RF pain cephalexin Discontinued Reason: Patient no longer taking 500 mg PO Q6H 7 days 28 caps 0RF Bacterial pharyngitis/UTI ondansetron Discontinued Reason: Patient no longer taking 4 mg PO Q6-8H PRN 14 tabs 0RF nausea and vomiting ondansetron Discontinued Reason: Patient no longer taking 4 mg PO Q6-8H PRN 14 tabs 0RF nausea and vomiting Coding Level of Care Code New Pt Level 3 (89016) Diagnoses Numbness and tingling in both hands R20.0; R20.2
== END 2024-01-13 12:22 | disposition home or self-care (01) ==
DX: R20.0 Anesthesia of skin (principal); R20.2 Paresthesia of skin; Z04.2 Encounter for examination and observation following work accident
CPT/HCPCS: 99203

== ENCOUNTER 2024-02-11 14:36 | Outpatient (REF) | payer OTHER, SELFPAY ==
--- NOTE | 2024-02-11 14:39 | EMG_ITS ---
Chief complaint: DOI: 12/20/2023. Complains of tingling on fingertips in wrist, hypersensitivity and elbows. Reason for referral: Evaluate for Carpal Tunnel Syndrome Referred by: Jacek PEÑALOZA Procedure done: Bilateral upper extremities NCS/EMG Precautions and/or limitations: None The limb temperature was monitored continuously and remained between 32-36 degrees C during the performance of the NCS. Nerve Conduction Studies Anti Sensory Summary Table ?Stim Site NR Onset (ms) Norm Onset (ms) Peak (ms) Norm Peak (ms) O-P Amp (?V) Norm O-P Amp Site1 Site2 Delta-0 (ms) Dist (cm) Yovani (m/s) Norm Yovani (m/s) Left Median Anti Sensory (2nd Digit) Wrist ? 2.0 2.7 <3.6 96.1 >10 Wrist 2nd Digit 2.0 14.0 70 Right Median Anti Sensory (2nd Digit) Wrist ? 2.0 2.7 <3.6 96.3 >10 Wrist 2nd Digit 2.0 14.0 70 Right Radial Anti Sensory (Thumb) Forearm ? 1.3 1.7 <3.1 42.4 Forearm Thumb 1.3 0.0 Left Ulnar Anti Sensory (5th Digit) Wrist ? 2.1 2.7 <3.7 77.9 >15.0 Wrist 5th Digit 2.1 14.0 67 Right Ulnar Anti Sensory (5th Digit) Wrist ? 2.0 2.6 <3.7 73.8 >15.0 Wrist 5th Digit 2.0 14.0 70 Motor Summary Table ?Stim Site NR Onset (ms) Norm Onset (ms) O-P Amp (mV) Norm O-P Amp iAmp (mV) Amp (1st) (%) Site1 Site2 Delta-0 (ms) Dist (cm) Yovani (m/s) Norm Yovani (m/s) Left Median Motor (Abd Poll Brev) Wrist ? 2.2 <3.9 9.5 >4.5 11.1 100.0 Elbow Wrist 3.3 18.0 55 >45 Elbow ? 5.5 9.0 10.1 94.7 Right Median Motor (Abd Poll Brev) Wrist ? 2.5 <3.9 8.3 >4.5 10.0 100.0 Elbow Wrist 3.1 18.0 58 >45 Elbow ? 5.6 7.0 8.5 84.3 Left Ulnar Motor (Abd Dig Minimi) Wrist ? 2.5 <3.0 10.1 >5 11.7 100.0 B Elbow Wrist 2.2 15.0 68 >45 B Elbow ? 4.7 10.5 12.3 104.0 A Elbow B Elbow 1.1 10.0 91 >45 A Elbow ? 5.8 10.4 12.3 103.0 Right Ulnar Motor (Abd Dig Minimi) Wrist ? 2.3 <3.0 10.2 >5 12.6 100.0 B Elbow Wrist 2.7 17.0 63 >45 B Elbow ? 5.0 10.9 13.6 106.9 A Elbow B Elbow 1.1 10.0 91 >45 A Elbow ? 6.1 11.0 13.5 107.8 EMG ?Side Muscle Nerve Root Ins Act Fibs Psw Amp Dur Poly Recrt Int Pat Comment Right 1stDorInt Ulnar C8-T1 Nml Nml Nml Nml Nml 0 Nml Complete Right FlexCarRad Median C6-7 Nml Nml Nml Nml Nml 0 Nml Complete Right Biceps Musculocut C5-6 Nml Nml Nml Nml Nml 0 Nml Complete Right Triceps Radial C6-7-8 Nml Nml Nml Nml Nml 0 Nml Complete Right Deltoid Axillary C5-6 Nml Nml Nml Nml Nml 0 Nml Complete Left 1stDorInt Ulnar C8-T1 Nml Nml Nml Nml Nml 0 Nml Complete Left FlexCarRad Median C6-7 Nml Nml Nml Nml Nml 0 Nml Complete Left Biceps Musculocut C5-6 Nml Nml Nml Nml Nml 0 Nml Complete Left Triceps Radial C6-7-8 Nml Nml Nml Nml Nml 0 Nml Complete Left Deltoid Axillary C5-6 Nml Nml Nml Nml Nml 0 Nml Complete FINDINGS: All motor and sensory nerves tested showed normal latencies, amplitudes and conduction velocities. Concentric needle EMG was performed in selected muscles of the bilateral upper extremities. Study did not reveal signs of electric abnormalities as shown in the table above. IMPRESSION: 1. This is a normal study. 2. There is no electrodiagnostic evidence for median neuropathy, ulnar neuropathy, brachial plexopathy, or cervical radiculopathy. Thank you for your kind referral. Mitzi Sinha MD, REBECCA Board Certified, [place] Board of Physical Medicine and Rehabilitation (ABPMR) Board Certified, [place] Board of Electrodiagnostic Medicine (ABEM) CODIN [phone] 2 MTDD
== END 2024-02-11 14:37 | disposition home or self-care (01) ==
LOC: HO.NEURO 14:36
DX: R20.0 Anesthesia of skin (principal); R20.2 Paresthesia of skin
CPT/HCPCS: 95886; 95911

== ENCOUNTER → 2024-02-11 14:39 | Outpatient (BNV) | payer OTHER, SELFPAY | PROVIDERS: Visit Provider Physical Medicine & Rehabilitation | DX: R20.0 Anesthesia of skin (principal); R20.2 Paresthesia of skin | CPT/HCPCS: 95886; 95911 ==

== ENCOUNTER 2024-02-25 10:57 | Outpatient (REF) | payer OTHER, SELFPAY ==
--- NOTE | ~2024-02-25 | XR_ITS ---
EXAMINATION: XR ELBOW, LEFT CLINICAL INFORMATION: M25.529 - Pain in unspecified elbow COMPARISON: None available. TECHNIQUE: AP, lateral, and oblique views of the left elbow. FINDINGS: The bones and soft tissues are normal. No fracture or joint effusion. Alignment is anatomic. Joint spaces are maintained. XR/XR elbow LT min 3V IMPRESSION: Normal left elbow. Electronically signed by: Brian Valera MD 03/25/2024 07:50 PM SUREK[facility]
--- NOTE | ~2024-02-25 | XR_ITS ---
EXAMINATION: XR ELBOW, RIGHT CLINICAL INFORMATION: M25.529 - Pain in unspecified elbow COMPARISON: None available. TECHNIQUE: AP, lateral, and oblique views of the right elbow. FINDINGS: The bones and soft tissues are normal. No fracture or joint effusion. Alignment is anatomic. Joint spaces are maintained. XR/XR elbow RT min 3V IMPRESSION: Normal right elbow. Electronically signed by: Brian Valera MD 03/25/2024 07:50 PM SUREKHA
== END 2024-02-25 10:58 | disposition home or self-care (01) ==
LOC: HO.HOSX 10:57
PROVIDERS: Visit Provider Physical Medicine & Rehabilitation
DX: M25.521 Pain in right elbow (principal); M25.522 Pain in left elbow; M79.641 Pain in right hand; M79.642 Pain in left hand
CPT/HCPCS: 73080; 99212

== ENCOUNTER 2024-02-25 10:57 | Outpatient (AMB) | payer OTHER, SELFPAY ==
--- NOTE | 2024-02-25 11:09 | MHC.OFFVIS ---
Intake Visit Reasons: OV - EMG review hands Intake Note: This is a 23 year old femal who presents for a review of her EMG study. The patient reports no changes at this time. She is right hand dominant. Allergies No Known Allergies Allergy (Verified 02/25/24 11:10) Medication List - Last Reconciled 02/25/24 by Tosha Orantes RN No Known Home Meds HPI Comments Details: Pain and tingling, moves around, from elbow to finger tips, not consistent. Random episodes. Today wrists left hurting. Fingertips tingle. EMG BUE was normal. No neck pain. Right handed. Was working at [employer], [employer]. WC because of repetitive injury? Been off work since 01/23/24. Currently in PT, last appointment is Wednesday. Has tried wrist splints at night. Denies neck pain. [facility] Medical History No known health problems Social History Alcohol intake: never Patient Tobacco Use Status: Never used Tobacco Substance Use Type: Marijuana Review of Systems Const All systems reviewed & are unremarkable except as noted in HPI and below Physical Exam Constitutional: Patient appears to be in no acute distress, well nourished and well developed. Patient was appropriately conversant and oriented. Good historian. MSK: Inspection reveals appropriate head and neck positioning. Cervical ROM was full. Spurling's sign negative. Negative Ramos sign bilateral. Bilateral shoulder, elbow and wrist ROM WNL. No ligamentous laxity or crepitance. No increased effusion. No joint effusion noted. No deformity noted. No intrinsic hand weakness noted. No atrophy noted. Arnie test negative. Carpal compression test negative. Tinel sign negative. Some tenderness/sensitivity on left medial epicondyle. No increased elbow pain with resisted wrist extension or resisted wrist flexion. Strength is 5/5 in all muscle groups tested. No increased tone noted. Neurological: Neurologic examination of the upper and lower extremities was nonfocal with intact sensation, muscle stretch reflexes and without focal motor deficits . Guerrero?s negative bilaterally. Babinski was down going bilaterally. Clonus was negative. Gait is non-antalgic without loss of balance. We have all aguilera Results Reviewed Results Reviewed: I independently reviewed the results of the following: Hand x-rays did not show any joint distraction arthritis. Bending official reading by Radiology. EMG done by me: IMPRESSION: 1. This is a normal study. 2. There is no electrodiagnostic evidence for median neuropathy, ulnar neuropathy, brachial plexopathy, or cervical radiculopathy. I reviewed records from the following: Hand surgery-Jacek PEÑALOZA Assessment & Plan Assessment & Plan (1) Elbow pain: Code(s): M25.529 - Pain in unspecified elbow Category: Medical Qualifiers: Laterality: bilateral Qualified Code(s): M25.521 - Pain in right elbow; M25.522 - Pain in left elbow (2) Bilateral hand pain: Code(s): M79.641 - Pain in right hand; M79.642 - Pain in left hand Category: Medical Plan Initially seen by hand surgery PA Jacek Christian. EMG was done by me. Today I believe is a 2nd opinion from physiatry point of view. Hand x-rays did not show joint destruction or arthritis. Pending official reading by [facility]. EMG done by me bilateral upper extremities normal. Sending for elbow x-rays for completion, doubt that it would show any bony abnormalities. Overall poor effort on exam but no objective abnormalities essentially. We will renew PT/OT orders to continue working on her hands, wrists and elbows. Ultimately and objectively I think she can push to go back to work without restrictions after another 4 weeks of PT. Understandably patient is emotional. She has a 1-year-old child at home. She complains of pain with repetitive work. For now, continue restrictions of no repetitive work for the next 4 weeks. We will re-evaluate after. Discussed with Jacek PEÑALOZA. If patient insists on another opinion, perhaps she could see hand surgeon Dr. Shanta Wiseman. Assessment and plan discussed with patient, and patient was agreeable. All questions were answered thoroughly. Mitzi Sinha MD, REBECCA Board Certified, [place] Board of Physical Medicine and Rehabilitation (ABPMR) Board Certified, [place] Board of Electrodiagnostic Medicine (ABEM) Orders: Orders PT Evaluation and Treatment Today M25.529 - Pain in unspecified elbow, M79.641 - Pain in right hand, M79.642 - Pain in left hand XR elbow LT min 3V Today M25.529 - Pain in unspecified elbow XR elbow RT min 3V Today M25.529 - Pain in unspecified elbow Coding Level of Care Code Est Pt Level 4 (37136) Diagnoses Pain of both elbows M25.521; M25.522 Laterality: bilateral Bilateral hand pain M79.641; M79.642
== END 2024-02-25 12:09 | disposition home or self-care (01) ==
LOC: HO.HOS 10:57
PROVIDERS: Visit Provider Physical Medicine & Rehabilitation
DX: M25.521 Pain in right elbow (principal); M25.522 Pain in left elbow; M79.641 Pain in right hand; M79.642 Pain in left hand
CPT/HCPCS: 99213

== ENCOUNTER → 2024-02-25 11:46 | Outpatient (BNV) | payer OTHER, SELFPAY | PROVIDERS: Visit Provider Radiology Diagnostic Radiology | DX: M25.521 Pain in right elbow (principal); M25.522 Pain in left elbow | CPT/HCPCS: 73080 ==

== ENCOUNTER 2024-03-30 10:48 | Outpatient (AMB) | payer OTHER, SELFPAY ==
[2024-03-30 11:02] VITALS: BMI 35.0
--- NOTE | 2024-03-30 11:02 | MHC.OFFVIS ---
Vital Signs 03/30/24 11:02 Height 5 ft 1 in Weight 185 lb BMI 35.0 Intake Visit Reasons: OV-B//L elbow 4WK follow up Intake Note: Dede is a 23 year old female who presents today for evaluation of bilateral elbow pain. Patient reports PT suggested she is evaluated for her neck. Patient states some of the PT exercises caused her pain radiating down to the arms. No other concerns today. Allergies No Known Allergies Allergy (Verified 03/30/24 11:03) HPI Comments Details: Pain and tingling, moves around, from elbow to finger tips, not consistent. Today she says it's more the pinky on left. Her elbows are very sensitive. She says she remains active at home, that she tries to exercise and she has a 1 year old child. EMG BUE was normal. No neck pain. But OT discharged her and she said she was told it could be related to her neck . I don't have OT notes to review. Right handed. Was working at [employer], [employer]. WC because of repetitive injury? Been off work since 01/23/24. Has tried wrist splints at night. Has prevously denied neck pain. [facility] Medical History No known health problems Social History Alcohol intake: never Patient Tobacco Use Status: Never used Tobacco Substance Use Type: Marijuana Physical Exam Vital Signs: BMI result Body Mass Index 35.0 Constitutional: Patient appears to be in no acute distress, well nourished and well developed. Patient was appropriately conversant and oriented. MSK: Inspection reveals appropriate head and neck positioning. Cervical ROM was full. Shoulder ROM full. Tender to even light touch on medial epicondyle, bilateral. Tender to touch on both wrists. No signs of redness, inflammation, edema or swelling on wrists, fingers or elbows. Spurling's sign - I thought was normal but patient reported shooting on left hand. Negative Ramos sign bilateral. Give way weakness on MMT. Neurological: Neurologic examination of the upper and lower extremities was nonfocal with intact sensation, muscle stretch reflexes and without focal motor deficits . Guerrero?s negative bilaterally. Gait is non-antalgic without loss of balance. Results Reviewed Results Reviewed: Ordering Physician: Mitzi Smith Date of Service: 02/25/24 Procedure(s): XR elbow RT min 3V Accession Number(s): [id number] cc: Mitiz Smith~ EXAMINATION: XR ELBOW, RIGHT CLINICAL INFORMATION: M25.529 - Pain in unspecified elbow COMPARISON: None available. TECHNIQUE: AP, lateral, and oblique views of the right elbow. FINDINGS: The bones and soft tissues are normal. No fracture or joint effusion. Alignment is anatomic. Joint spaces are maintained. XR/XR elbow RT min 3V IMPRESSION: Normal right elbow. EXAMINATION: XR ELBOW, LEFT CLINICAL INFORMATION: M25.529 - Pain in unspecified elbow COMPARISON: None available. TECHNIQUE: AP, lateral, and oblique views of the left elbow. FINDINGS: The bones and soft tissues are normal. No fracture or joint effusion. Alignment is anatomic. Joint spaces are maintained. XR/XR elbow LT min 3V IMPRESSION: Normal left elbow. Ordering Physician: Jacek Christian Date of Service: 01/13/24 Procedure(s): XR hand LT min 3V Accession Number(s): [id number] cc: Jacek Christian~ EXAMINATION: XR HAND, LEFT CLINICAL INFORMATION: M79.642 - Pain in left hand COMPARISON: None available. TECHNIQUE: PA, lateral, and oblique views of the left hand. FINDINGS: Normal bone mineralization. No fracture, dislocation, or suspicious bone lesions. There is normal alignment. Carpal bones are intact and normally aligned. There are no arthritic changes or erosions identified. The soft tissues appear normal. XR/XR hand LT min 3V IMPRESSION: Normal left hand. EXAMINATION: XR HAND, RIGHT CLINICAL INFORMATION: M79.641 - Pain in right hand COMPARISON: None available. TECHNIQUE: PA, lateral, and oblique views of the right hand. FINDINGS: Normal bone mineralization. No fracture, dislocation, or suspicious bone lesions. There is normal alignment. Carpal bones are intact and normally aligned. There are no arthritic changes or erosions identified. The soft tissues appear normal. XR/XR hand RT min 3V IMPRESSION: Normal right hand. EMG done by me: IMPRESSION: 1. This is a normal study. 2. There is no electrodiagnostic evidence for median neuropathy, ulnar neuropathy, brachial plexopathy, or cervical radiculopathy. I reviewed records from the following: Hand surgery-Jacek PEÑALOZA Assessment & Plan Assessment & Plan (1) Bilateral hand pain: Code(s): M79.641 - Pain in right hand; M79.642 - Pain in left hand Category: Medical (2) Elbow pain: Code(s): M25.529 - Pain in unspecified elbow Category: Medical Qualifiers: Laterality: bilateral Qualified Code(s): M25.521 - Pain in right elbow; M25.522 - Pain in left elbow (3) Numbness and tingling in both hands: Code(s): R20.0 - Anesthesia of skin; R20.2 - Paresthesia of skin Category: Medical Plan Initially seen by hand surgery PA Jacek Christian. EMG was done by me. Then Jacek referred patient to Physiatry. Hand x-rays did not show joint destruction or arthritis, essentially normal. Elbow xrays are normal. EMG done by me bilateral upper extremities normal. Same symptoms reported. She was told by OT that this could be related to neck . However from exam last visit and today, no signs of cervical radiculopathy or myelopathy. EMG did not show signs of radiculopathy. 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 She is afraid to go back to work that requires repetitive work. I will refer her to [facility]. I advised for her to discuss with her WC adjustor if she can get referral for neck pain, if covered by WC. Consider referral to Pain Management for the neck pain if needed or covered for WC. For now, continue previous restrictions of no repetitive work. She has follow up scheduled with hand surgery. No need to follow up with Physiatry, no additional recommendations besides Work Conditioning. Assessment and plan discussed with patient, and patient was agreeable. All questions were answered thoroughly. Total of 30 minutes spent today including chart review, results review, history taking, physical examination, discussion of assessment and plan, and coordination of care. Mitzi Sinha MD, REBECCA Board Certified, [place] Board [employer] and Rehabilitation (ABPMR) Board Certified, [place] Board [employer] Electrodiagnostic [employer] (ABEM) Orders: Orders PT Evaluation and Treatment Today M25.521 - Pain in right elbow, M25.522 - Pain in left elbow, M79.641 - Pain in right hand, M79.642 - Pain in left hand, R20.0 - Anesthesia of skin, R20.2 - Paresthesia of skin Coding Level of Care Code Est Pt Level 4 (56012) Diagnoses Bilateral hand pain M79.641; M79.642 Pain of both elbows M25.521; M25.522 Laterality: bilateral Numbness and tingling in both hands R20.0; R20.2
== END 2024-03-30 11:38 | disposition home or self-care (01) ==
PROVIDERS: Visit Provider Physical Medicine & Rehabilitation
DX: M79.641 Pain in right hand (principal); M79.642 Pain in left hand; M25.521 Pain in right elbow; M25.522 Pain in left elbow; R20.0 Anesthesia of skin; R20.2 Paresthesia of skin
CPT/HCPCS: 99214

== ENCOUNTER → 2024-03-30 10:48 | Outpatient (BNVA) | payer OTHER, SELFPAY | PROVIDERS: Visit Provider Physical Medicine & Rehabilitation | DX: M79.641 Pain in right hand (principal); M79.642 Pain in left hand; M25.522 Pain in left elbow; M25.521 Pain in right elbow; R20.0 Anesthesia of skin; R20.2 Paresthesia of skin | CPT/HCPCS: 99212 ==

== ENCOUNTER 2024-08-06 03:06 | Emergency (ER) | payer OTHER, SELFPAY ==
--- NOTE | ~2024-08-06 | XR_ITS ---
CLINICAL HISTORY: swollen 3 view left hand Comparison: 01/13/2024 Findings: Bones intact. No dislocations. No significant arthritic change. No erosions. No radiopaque foreign body. IMPRESSION: 1. No acute findings This document has been electronically signed by: Mu Delacruz MD on 08/06/2024 04:51:13
[2024-08-06 03:10] VITALS: BP 133/79; PULSE 116; RESP 20; TEMP 36.8; O2SAT 97; BMI 35.2
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
[2024-08-06 04:07] VITALS: BP 133/79; PULSE 116; RESP 20; TEMP 36.8; O2SAT 97
== END 2024-08-06 04:08 | disposition home or self-care (01) ==
PROVIDERS: Emergency Provider Internal Medicine
DX: S63.255A Unspecified dislocation of left ring finger, initial encounter (principal); S00.211A Abrasion of right eyelid and periocular area, initial encounter; Y04.0XXA Assault by unarmed brawl or fight, initial encounter; Y93.9 Activity, unspecified; Y92.9 Unspecified place or not applicable; Y99.9 Unspecified external cause status
CPT/HCPCS: 29130; 73130; 99283; 99284

== ENCOUNTER → 2024-08-06 03:53 | Outpatient (BNV) | payer OTHER, SELFPAY | PROVIDERS: Emergency Provider Internal Medicine; Visit Provider Specialist | DX: M79.642 Pain in left hand (principal) | CPT/HCPCS: 73130 ==